=== PATIENT | female | born 1985 | race Caucasian/White ===

== ENCOUNTER 2017-12-08 03:01 | Inpatient (IN) | payer OTHER, MEDICAID ==
[2017-12-08] MEDS: LORazepam 2 MG/ML VIAL (J2060) IV ×2 (03:25→05:00)
[2017-12-08] MEDS: NS 1,000 ML IV (03:30)
[2017-12-08] MEDS: POTASSIUM CHLORIDE 10 MEQ SR TABLET PO ×2 (04:15→11:52)
[2017-12-08] MEDS: OXAZEPAM 15 MG CAP PO ×3 (05:00→23:01)
[2017-12-08] MEDS: KCL 10MEQ IN STERILE WATER 100ML IV (05:00)
[2017-12-08] MEDS ORDERED: KCL 10MEQ IN STERILE WATER 100ML As Ordered (05:01)
[2017-12-08] MEDS ORDERED: POTASSIUM CHLORIDE 10 MEQ SR TABLET As Ordered (05:02)
[2017-12-08 05:09] LABS: BASO % 0.2 % (0.0-1.0); EOS % 0.2 % (0.0-3.0); HEMATOCRIT 39.9 % (36.0-47.0); HEMOGLOBIN 14.3 g/dl (12.0-16.0); IMMATURE GRANULOCYTE # 0.1 10^3/uL (0-0); IMMATURE GRANULOCYTE % 0.5 % (0-0); LYMPH % 10.3 % (24.0-44.0); MEAN CORPUSCULAR HGB CONC 35.8 g/dl (32.0-36.5); MEAN CORPUSCULAR VOLUME 94.8 fl (80.0-96.0); MONO # 0.4 10^3/uL (0.0-0.8); MONO % 4.5 % (0.0-5.0); NEUTROPHILS % 84.3 % (36.0-66.0); PLATELET COUNT, AUTOMATED 145 10^3/uL (150-450); RED BLOOD COUNT 4.21 10^6/uL (4.00-5.40); RED CELL DISTRIBUTION WIDTH 15.5 % (11.5-14.5); WHITE BLOOD COUNT 9.5 10^3/uL (4.0-10.0)
[2017-12-08 05:10] LABS: ANION GAP 12 MEQ/L (8-16); BLOOD UREA NITROGEN 13 MG/DL (7-18); CALCIUM LEVEL 8.7 MG/DL (8.5-10.1); CARBON DIOXIDE LEVEL 31 MEQ/L (21-32); CHLORIDE LEVEL 85 MEQ/L (98-107); CK-MB VALUE MASS 2.1 NG/ML (0.0-3.6); CPK CREATINE PHOSPHOKINASE 550 U/L (26-192); CREATININE FOR GFR 1.15 MG/DL (0.55-1.30); GLOMERULAR FILTRATION RATE 57.9 (>60); GLUCOSE, FASTING 141 MG/DL (70-100); MB/CK RELATIVE INDEX 0.38 (< OR =4); POTASSIUM SERUM 2.8 MEQ/L (3.5-5.1); SODIUM LEVEL 128 MEQ/L (136-145); TROPONIN I < 0.02 NG/ML (< 0.10)
[2017-12-08 05:16] LABS: CONTROL LINE HCG INT CTR LINE PRESENT; HCG, SERUM QUALITATIVE NEGATIVE (NEGATIVE)
[2017-12-08 05:16] LABS: ETHYL ALCOHOL (ETHANOL) < 0.003 % (0.000-0.010)
[2017-12-08] MEDS ORDERED: NS 1,000 ML IV (05:32)
[2017-12-08] MEDS ORDERED: ONDANSETRON 4MG/2ML VIAL (J2405) IV (05:45)
[2017-12-08 05:46] LABS: INR 0.96; PROTHROMBIN TIME 12.9 SECONDS (12.4-14.5)
[2017-12-08 05:57] LABS: ALBUMIN 4.3 GM/DL (3.2-5.2); ALBUMIN/GLOBULIN RATIO 0.93 (1.00-1.93); ALKALINE PHOSPHATASE 52 U/L (45-117); ALT/SGPT 33 U/L (12-78); AST/SGOT 70 U/L (7-37); BILIRUBIN,DIRECT 0.6 MG/DL (0.0-0.2); BILIRUBIN,TOTAL 2.1 MG/DL (0.2-1.0); MAGNESIUM LEVEL 1.5 MG/DL (1.8-2.4); PHOSPHORUS LEVEL 2.1 MG/DL (2.5-4.9); TOTAL PROTEIN 8.9 GM/DL (6.4-8.2)
[2017-12-08] MEDS ORDERED: TETRAHYDROZOLINE OPHTH 0.05% 15 ML BTL OU (06:00)
[2017-12-08] MEDS ORDERED: POLYVINYL ALCOHOL OPHTH SOLN 15 ML(LIQUITEARS) OU (06:30)
[2017-12-08] MEDS: MULTIVITAMIN -ADULT INJECTION 10 ML, THIAMINE INJection 100 MG, FOLIC ACID 1 MG in NS 1... IV (06:45)
[2017-12-08] MEDS: ENOXAPARIN 40 MG/0.4 ML SYRINGE (J1650) SC (08:59)
[2017-12-08] MEDS: PANTOPRAZOLE 40MG TAB (PROTONIX) PO (08:59)
[2017-12-08 10:57] LABS: ALBUMIN 3.2 GM/DL (3.2-5.2); ALBUMIN/GLOBULIN RATIO 0.76 (1.00-1.93); ALKALINE PHOSPHATASE 42 U/L (45-117); ALT/SGPT 27 U/L (12-78); ANION GAP 9 MEQ/L (8-16); AST/SGOT 53 U/L (7-37); BILIRUBIN,TOTAL 1.6 MG/DL (0.2-1.0); BLOOD UREA NITROGEN 11 MG/DL (7-18); CALCIUM LEVEL 7.9 MG/DL (8.5-10.1); CARBON DIOXIDE LEVEL 32 MEQ/L (21-32); CHLORIDE LEVEL 94 MEQ/L (98-107); CREATININE FOR GFR 0.87 MG/DL (0.55-1.30); GLOMERULAR FILTRATION RATE > 60.0 (>60); GLUCOSE, FASTING 105 MG/DL (70-100); MAGNESIUM LEVEL 1.6 MG/DL (1.8-2.4); SODIUM LEVEL 135 MEQ/L (136-145); TOTAL PROTEIN 7.4 GM/DL (6.4-8.2)
[2017-12-08] MEDS: KCL 10MEQ IN 100ML SWI (KRUN) 10 MEQ in APPROPRIATE DILUENT 1 EA IV ×4 (12:00→23:16)
[2017-12-08] MEDS: D5W/0.45% SODIUM CHLORIDE 1,000 ML IV (12:00)
[2017-12-08] MEDS: MAG SULF 1GM/100ML (MAG RUN) 1 GM in APPROPRIATE DILUENT 1 EA IV ×2 (12:23→13:00)
[2017-12-08 17:21] LABS: ANION GAP 6 MEQ/L (8-16); BLOOD UREA NITROGEN 10 MG/DL (7-18); CALCIUM LEVEL 7.8 MG/DL (8.5-10.1); CARBON DIOXIDE LEVEL 30 MEQ/L (21-32); CHLORIDE LEVEL 98 MEQ/L (98-107); CREATININE FOR GFR 0.79 MG/DL (0.55-1.30); GLOMERULAR FILTRATION RATE > 60.0 (>60); GLUCOSE, FASTING 118 MG/DL (70-100); MAGNESIUM LEVEL 2.5 MG/DL (1.8-2.4); POTASSIUM SERUM 3.5 MEQ/L (3.5-5.1); SODIUM LEVEL 134 MEQ/L (136-145)
[2017-12-09] MEDS ORDERED: ACETAMINOPHEN TAB 650MG DOSE (2X325MG) PO (01:15)
[2017-12-09] MEDS: ALBUTEROL SULFATE 2.5 MG/0.5 ML INH NEB SOLN NEB (01:31)
[2017-12-09] MEDS: guaiFENesin ER 600 MG TAB PO ×3 (01:31→21:53)
[2017-12-09] MEDS: LORazepam 2 MG/ML VIAL (J2060) IV (02:56)
[2017-12-09] MEDS: OXAZEPAM 10 MG CAP PO (06:10)
[2017-12-09 07:04] LABS: BASO % 0.4 % (0.0-1.0); EOS # 0.1 10^3/uL (0.0-0.50); EOS % 1.1 % (0.0-3.0); IMMATURE GRANULOCYTE % 0.6 % (0-0); LYMPH # 0.6 10^3/uL (1.5-4.5); LYMPH % 10.6 % (24.0-44.0); MEAN CORPUSCULAR HEMOGLOBIN 33.9 pg (27.0-33.0); MEAN CORPUSCULAR HGB CONC 33.7 g/dl (32.0-36.5); MEAN CORPUSCULAR VOLUME 100.6 fl (80.0-96.0); MONO # 0.3 10^3/uL (0.0-0.8); MONO % 5.2 % (0.0-5.0); NEUTROPHILS # 4.4 10^3/uL (1.8-7.7); NEUTROPHILS % 82.1 % (36.0-66.0); PLATELET COUNT, AUTOMATED 102 10^3/uL (150-450); RED BLOOD COUNT 3.48 10^6/uL (4.00-5.40); RED CELL DISTRIBUTION WIDTH 15.3 % (11.5-14.5); WHITE BLOOD COUNT 5.4 10^3/uL (4.0-10.0)
[2017-12-09 07:12] LABS: HEMOGLOBIN 11.8 g/dl (12.0-16.0)
[2017-12-09 07:24] LABS: ANION GAP 9 MEQ/L (8-16); BLOOD UREA NITROGEN 7 MG/DL (7-18); CALCIUM LEVEL 8.1 MG/DL (8.5-10.1); CARBON DIOXIDE LEVEL 27 MEQ/L (21-32); CHLORIDE LEVEL 100 MEQ/L (98-107); CREATININE FOR GFR 0.71 MG/DL (0.55-1.30); GLOMERULAR FILTRATION RATE > 60.0 (>60); GLUCOSE, FASTING 108 MG/DL (70-100); MAGNESIUM LEVEL 1.9 MG/DL (1.8-2.4); POTASSIUM SERUM 3.4 MEQ/L (3.5-5.1); SODIUM LEVEL 136 MEQ/L (136-145)
[2017-12-09] MEDS ORDERED: guaiFENesin ER 600 MG TAB PO (09:00)
[2017-12-09] MEDS: ENOXAPARIN 40 MG/0.4 ML SYRINGE (J1650) SC (09:00)
[2017-12-09] MEDS: THIAMINE 100 MG TAB PO (09:44)
[2017-12-09] MEDS: MULTIVITAMINS/MINERALS THERAP 1 TAB PO (09:44)
[2017-12-09] MEDS: PANTOPRAZOLE 40MG TAB (PROTONIX) PO (09:44)
[2017-12-09] MEDS: FOLIC ACID 1 MG TAB PO (09:44)
[2017-12-09] MEDS: OXAZEPAM 15 MG CAP PO ×2 (09:45→21:53)
[2017-12-09] MEDS: POTASSIUM CHLORIDE 10 MEQ SR TABLET PO (09:45)
[2017-12-09] MEDS ORDERED: DEXTROMETHORPHAN 5 ML SYRUP (ROBITUSSIN PEDIATRIC COUGH) PO (14:30)
[2017-12-09] MEDS: BENZONATATE 100 MG CAP PO ×2 (14:58→21:53)
[2017-12-09] MEDS: DEXTROMETHORPHAN 60MG/10ML SUSP 90ML BTL(DELSYM) PO (18:07)
[2017-12-10 06:08] LABS: BASO % 0.5 % (0.0-1.0); EOS # 0.2 10^3/uL (0.0-0.50); HEMATOCRIT 36.9 % (36.0-47.0); HEMOGLOBIN 12.5 g/dl (12.0-16.0); IMMATURE GRANULOCYTE % 0.2 % (0-3.0); LYMPH # 1.1 10^3/uL (1.5-4.5); LYMPH % 25.8 % (24.0-44.0); MEAN CORPUSCULAR HEMOGLOBIN 34.2 pg (27.0-33.0); MEAN CORPUSCULAR HGB CONC 33.9 g/dl (32.0-36.5); MEAN CORPUSCULAR VOLUME 100.8 fl (80.0-96.0); MONO # 0.5 10^3/uL (0.0-0.8); MONO % 12.1 % (0.0-5.0); NEUTROPHILS # 2.4 10^3/uL (1.8-7.7); NEUTROPHILS % 57.4 % (36.0-66.0); PLATELET COUNT, AUTOMATED 117 10^3/uL (150-450); RED BLOOD COUNT 3.66 10^6/uL (4.00-5.40); RED CELL DISTRIBUTION WIDTH 15.4 % (11.5-14.5); WHITE BLOOD COUNT 4.2 10^3/uL (4.0-10.0)
[2017-12-10 06:27] LABS: ANION GAP 11 MEQ/L (8-16); BLOOD UREA NITROGEN 5 MG/DL (7-18); CALCIUM LEVEL 8.1 MG/DL (8.5-10.1); CARBON DIOXIDE LEVEL 24 MEQ/L (21-32); CHLORIDE LEVEL 106 MEQ/L (98-107); CREATININE FOR GFR 0.54 MG/DL (0.55-1.30); GLOMERULAR FILTRATION RATE > 60.0 (>60); GLUCOSE, FASTING 108 MG/DL (70-100); MAGNESIUM LEVEL 1.9 MG/DL (1.8-2.4); POTASSIUM SERUM 3.1 MEQ/L (3.5-5.1); SODIUM LEVEL 141 MEQ/L (136-145)
[2017-12-10] MEDS: POTASSIUM CHLORIDE 10 MEQ SR TABLET PO (08:50)
[2017-12-10] MEDS: PANTOPRAZOLE 40MG TAB (PROTONIX) PO (08:51)
[2017-12-10] MEDS: THIAMINE 100 MG TAB PO (08:51)
[2017-12-10] MEDS: ENOXAPARIN 40 MG/0.4 ML SYRINGE (J1650) SC (08:51)
[2017-12-10] MEDS: FOLIC ACID 1 MG TAB PO (08:51)
[2017-12-10] MEDS: BENZONATATE 100 MG CAP PO (08:51)
[2017-12-10] MEDS: guaiFENesin ER 600 MG TAB PO (08:51)
[2017-12-10] MEDS: MULTIVITAMINS/MINERALS THERAP 1 TAB PO (08:51)
[2017-12-10] MEDS: OXAZEPAM 15 MG CAP PO (08:51)
== END 2017-12-10 11:37 | disposition home or self-care (01) | DRG 53 ==
LOC: M ED 03:01 → M ED INP 05:32 → M MS4PR 23:32
DX: G40.89 Other seizures (principal); B97.4 Respiratory syncytial virus as the cause of diseases classified elsewhere; E83.42 Hypomagnesemia; F10.239 Alcohol dependence with withdrawal, unspecified; F12.90 Cannabis use, unspecified, uncomplicated; E87.6 Hypokalemia; R19.7 Diarrhea, unspecified; Z79.899 Other long term (current) drug therapy; Z91.030 Bee allergy status

== ENCOUNTER → 2017-12-17 | Outpatient (REF) | payer OTHER ==
[2017-12-17 12:54] LABS: FOLATE 5.8 NG/ML (>5.4); VITAMIN B12 LEVEL 804 PG/ML (247-911)
[2017-12-17 13:39] LABS: ALBUMIN 3.5 GM/DL (3.2-5.2); ALKALINE PHOSPHATASE 55 U/L (45-117); ALT/SGPT 42 U/L (12-78); ANION GAP 11 MEQ/L (8-16); AST/SGOT 33 U/L (7-37); BILIRUBIN,TOTAL 0.4 MG/DL (0.2-1.0); BLOOD UREA NITROGEN 5 MG/DL (7-18); CALCIUM LEVEL 9.3 MG/DL (8.5-10.1); CARBON DIOXIDE LEVEL 27 MEQ/L (21-32); CHLORIDE LEVEL 102 MEQ/L (98-107); CREATININE FOR GFR 0.57 MG/DL (0.55-1.30); GLOMERULAR FILTRATION RATE > 60.0 (>60); GLUCOSE, FASTING 96 MG/DL (70-100); MAGNESIUM LEVEL 1.8 MG/DL (1.8-2.4); POTASSIUM SERUM 4.1 MEQ/L (3.5-5.1); SODIUM LEVEL 140 MEQ/L (136-145); TOTAL PROTEIN 7.9 GM/DL (6.4-8.2)
== END ==
LOC: M SFHCPLAZ 10:23
DX: E87.6 Hypokalemia (principal); E87.1 Hypo-osmolality and hyponatremia; R74.0 Nonspecific elevation of levels of transaminase and lactic acid dehydrogenase [LDH]; D75.89 Other specified diseases of blood and blood-forming organs; E83.42 Hypomagnesemia
CPT/HCPCS: 82746

== ENCOUNTER 2019-02-03 22:46 | Emergency (ER) | payer OTHER ==
[~2019-02-03] VITALS: Ht 175.3 cm; Wt 206.0 kg
[~2019-02-03 22:46] MED LIST: /THIA10TA OR; BENZ-18 PO; COCO1000 PO; FOLI1TAB OR; IBUP600T42 PO; K-TA10TA2 PO; MAGN400T PO; MAPA500T2 PO; MELA1CAP2 PO; MUCI600T37 PO; MULT1TAB10 PO; MULTIVIT PO; OXAZ15CA2 OR; PREN29TA4 PO; VISI0.054 OU; VITMTA PO
[2019-02-03] MEDS ORDERED: ESCI10TA2 (22:56)
[2019-02-03 23:43] LABS: BASO % 0.4 % (0.0-1.0); EOS # 0.2 10^3/uL (0.0-0.50); EOS % 2.2 % (0.0-3.0); HEMATOCRIT 35.4 % (36.0-47.0); HEMOGLOBIN 12.2 g/dl (12.0-15.5); LYMPH # 3.4 10^3/uL (1.5-4.5); LYMPH % 31.7 % (24.0-44.0); MEAN CORPUSCULAR HEMOGLOBIN 31.6 pg (27.0-33.0); MEAN CORPUSCULAR HGB CONC 34.5 g/dl (32.0-36.5); MEAN CORPUSCULAR VOLUME 91.7 fl (80.0-96.0); MONO # 0.7 10^3/uL (0.0-0.8); MONO % 6.5 % (0.0-5.0); NEUTROPHILS # 6.3 10^3/uL (1.8-7.7); PLATELET COUNT, AUTOMATED 275 10^3/uL (150-450); RED BLOOD COUNT 3.86 10^6/uL (4.00-5.40); WHITE BLOOD COUNT 10.7 10^3/uL (4.0-10.0)
[2019-02-03 23:45] LABS: BILIRUBIN, URINE MANUAL OBSCURED (NEGATIVE); GLUCOSE, URINE (UA) MANUAL OBSCURED mg/dL (NEGATIVE); KETONE, URINE MANUAL OBSCURED mg/dL (NEGATIVE); UROBILINOGEN, URINE MANUAL OBSCURED mg/dl (NORMAL)
[2019-02-03 23:49] LABS: MUCUS, URINE SMALL AMOUNT (NEGATIVE); RBC, URINE TNTC /hpf (0-3); SQUAMOUS EPITHELIAL CELL URINE SMALL AMOUNT /hpf (SMALL AMT)
[2019-02-03 23:51] LABS: BACTERIA, URINE SMALL AMOUNT; HYALINE CAST, URINE NONE SEEN /lpf (0-1)
--- NOTE | 2019-02-04 00:10 | REPVR ---
EXAM: US First Trimester, Transabdominal EXAM DATE/TIME: 02/03/2019 11:22 PM CLINICAL HISTORY: 33 years old, female; Signs and symptoms; Lmp or gestational age (in weeks): Unknown; Other: Vagial bleeding; ; Additional info: Bleeding, 8 wks TECHNIQUE: Imaging protocol: Real-time transabdominal obstetrical ultrasound of the maternal pelvis and a first trimester , less than 14 weeks 0 days, with image documentation. COMPARISON: No relevant prior studies available. FINDINGS: GESTATION: Gestation: No gestational sac demonstrated. BIOMETRY: Estimated gestational age: 8 weeks by history MATERNAL: Uterus: Uterus measures 11.3 x 5.4 x 6.5 cm. Endometrial echocomplex measures 1.9 centimeters. Cervix: Unremarkable. Right adnexa: Unremarkable. Left adnexa: Left ovarian cyst measures 1.2 x 2.3 x 1.5 cm. Intraperitoneal: No intraperitoneal free fluid. IMPRESSION: Empty uterus in a patient who is reportedly 8 weeks based on dates. Finding may indicate very early IUP prior to visualization of a gestational sac or fetus, assuming dates are inaccurate. Correlation with serial beta-hCG levels and follow ultrasound recommended in order to exclude ectopic verses very early or early failure. Electronically signed by: Antonio Crespo On 02/04/2019 00:09:53 AM
[2019-02-04 01:40] VITALS: BP 127/68
== END 2019-02-04 01:44 | disposition home or self-care (01) ==
LOC: M ED 22:46
DX: O20.9 Hemorrhage in early pregnancy, unspecified (principal); Z3A.08 8 weeks gestation of pregnancy; O99.89 Other specified diseases and conditions complicating pregnancy, childbirth and the puerperium; R56.9 Unspecified convulsions; Z91.030 Bee allergy status

== ENCOUNTER → 2019-02-05 | Outpatient (CLI) | payer OTHER ==
[~2019-02-05] MED LIST changes: +ESCI10TA2
== END ==
LOC: M LAB 15:17
PROVIDERS: ATTEND Student in an Organized Health Care Education/Training Program
DX: O99.89 Other specified diseases and conditions complicating pregnancy, childbirth and the puerperium (principal); N93.9 Abnormal uterine and vaginal bleeding, unspecified; Z3A.00 Weeks of gestation of pregnancy not specified

== ENCOUNTER → 2019-03-01 | Outpatient (CLI) | payer OTHER ==
[2019-03-03 14:51] LABS: HPV HYBRID CAPTURE II Negative (Negative)
== END ==
LOC: M SMT 10:27
PROVIDERS: ATTEND Advanced Practice Midwife
DX: N92.6 Irregular menstruation, unspecified (principal); Z12.4 Encounter for screening for malignant neoplasm of cervix

== ENCOUNTER 2020-02-22 16:51 | Inpatient (IN) | payer MEDICAID, OTHER ==
[~2020-02-22] VITALS: Ht 172.7 cm; Wt 97.4 kg
[~2020-02-22 16:51] MED LIST changes: -MAGN400T PO; +MAGN400T3 PO
[2020-02-22] MEDS ORDERED: TRAZ-252 PO (16:58)
[2020-02-22] MEDS ORDERED: NALT50TA4 PO (16:58)
[2020-02-22 17:33] LABS: BASO % 0.4 % (0.0-1.0); EOS # 0.1 10^3/uL (0.0-0.5); EOS % 1.2 % (0.0-3.0); HEMATOCRIT 40.7 % (36.0-47.0); HEMOGLOBIN 13.8 g/dl (12.0-15.5); LYMPH # 1.2 10^3/uL (1.5-5.0); LYMPH % 23.6 % (24.0-44.0); MEAN CORPUSCULAR HEMOGLOBIN 32.9 pg (27.0-33.0); MEAN CORPUSCULAR HGB CONC 33.9 g/dl (32.0-36.5); MEAN CORPUSCULAR VOLUME 97.1 fl (80.0-96.0); MONO # 0.2 10^3/uL (0.0-0.8); MONO % 4.3 % (0.0-5.0); NEUTROPHILS # 3.4 10^3/uL (1.5-8.5); NEUTROPHILS % 70.3 % (36.0-66.0); PLATELET COUNT, AUTOMATED 120 10^3/uL (150-450); RED BLOOD COUNT 4.19 10^6/uL (4.00-5.40); WHITE BLOOD COUNT 4.9 10^3/uL (4.0-10.0)
[2020-02-22] MEDS ORDERED: FOLIC ACID 1 MG TAB PO ONE (17:45)
[2020-02-22] MEDS ORDERED: OXAZEPAM 15 MG CAP PO ONE (17:45)
[2020-02-22] MEDS ORDERED: THIAMINE 100 MG TAB PO ONE (17:45)
[2020-02-22] MEDS ORDERED: NS 1,000 ML IV ONE (17:45)
[2020-02-22 18:03] LABS: HCG, SERUM QUALITATIVE NEGATIVE (NEGATIVE)
[2020-02-22 18:12] LABS: ALT/SGPT 24 U/L (12-78); BILIRUBIN,DIRECT 0.4 MG/DL (0.0-0.2); BILIRUBIN,TOTAL 1.1 MG/DL (0.2-1.0); BLOOD UREA NITROGEN 7 MG/DL (7-18); CALCIUM LEVEL 9.9 MG/DL (8.5-10.1); CARBON DIOXIDE LEVEL 25 MEQ/L (21-32); CHLORIDE LEVEL 95 MEQ/L (98-107); CREATININE FOR GFR 1.04 MG/DL (0.55-1.30); ETHYL ALCOHOL (ETHANOL) < 0.003 % (0.000-0.010); FREE T4 0.87 NG/DL (0.76-1.46); GLOMERULAR FILTRATION RATE > 60.0 (>60); GLUCOSE, FASTING 168 MG/DL (70-100); MAGNESIUM LEVEL 1.2 MG/DL (1.8-2.4); PHOSPHORUS LEVEL 2.2 MG/DL (2.5-4.9); POTASSIUM SERUM 2.9 MEQ/L (3.5-5.1); SODIUM LEVEL 133 MEQ/L (136-145); TOTAL PROTEIN 8.6 GM/DL (6.4-8.2)
[2020-02-22] MEDS ORDERED: POTASSIUM CHLORIDE 10 MEQ SR TABLET PO ONE (18:15)
[2020-02-22] MEDS ORDERED: KCL 10MEQ/100ML SWI (KRUN) 10 MEQ in IV 1 EA IV ONE (18:15)
--- NOTE | 2020-02-22 18:19 | REP ---
Clinical: Cough. Seizures . Comparison: None . Findings: The mediastinum and cardiac silhouette are stable and within normal limits for portable technique. The lung bee are clear without acute consolidation, effusion, or pneumothorax. Skeletal structures are intact. Impression: No acute cardiopulmonary process appreciated. Electronically Signed by Thiago Kulkarni MD 02/22/2020 06:10 P
[2020-02-22] MEDS ORDERED: NEUTRA-PHOS 1.5 GM PACKET PO ONE (18:45)
[2020-02-22] MEDS ORDERED: MAGNESIUM OXIDE 400 MG TAB (MAG-OX) PO ONE (18:45)
[2020-02-22 19:59] LABS: AMPHETAMINES LEVEL URINE NEGATIVE (NEGATIVE); BARBITURATES URINE NEGATIVE (NEGATIVE); BENZODIAZEPINES URINE NEGATIVE (NEGATIVE); CANNABINOIDS URINE POSITIVE (NEGATIVE); COCAINE METABOLITE URINE NEGATIVE (NEGATIVE); METHADONE URINE NEGATIVE (NEGATIVE); OPIATES URINE NEGATIVE (NEGATIVE); PHENCYCLIDINE URINE NEGATIVE (NEGATIVE)
[2020-02-22] MEDS ORDERED: LORazepam 2 MG/ML VIAL (J2060) IV STA (20:14)
[2020-02-22] MEDS ORDERED: LORazepam 2 MG/ML VIAL (J2060) As Ordered ONE (20:26)
[2020-02-22] MEDS ORDERED: ESCI20TA PO (20:52)
[2020-02-22] MEDS ORDERED: ACETAMINOPHEN TAB 650MG DOSE (2X325MG) PO PRN (21:00)
[2020-02-22] MEDS: KCL 40MEQ in NS 1000ML 1,000 ML IV SCH (21:41)
--- NOTE | 2020-02-22 21:43 | HPEPDOC ---
General Date of Admission Feb 22, 2020 at 20:57 Date of Service: Feb 22, 2020 Chief Complaint The patient is a 34-year-old female Who presented to the hospital after she was found to have a seizure-like episode at home History of Present Illness Patient is a 34-year-old female with a past medical history of alcohol dependence. Marijuana use, depression and insomnia who presented to the hospital after she had experienced a seizure-like episode this afternoon. Patient reported that she remembers walking around her living room and toward her kitchen and then went for a nap, but does not remember anything after that point. Patients boyfriend has reported that she began to experience tonic- clonic seizure like activity. Patient remembers waking up post seizure, feeling extremely weak and tired. She denied any incontinence of her bowel or bladder. She does report some li biting, but denies any frothing of her mouth. Patient has reported that she has experienced a seizure-like episode like this almost 2 years ago and was hospitalized for similar presentation. At that time, patient was advised that her seizures were associated to alcohol withdrawal. Patient has not been on any antiepileptic medications. Patient does report drinking an excessive amount of alcohol over the last 1 week. She does report consuming at least 5 glasses of vodka per day. Of note, patient did not consume any alcohol today. Patient denies any chest pain, shortness of breath or any changes of her baseline cough. She has not experienced any fevers or chills, abdominal pain, nausea, vomiting, constipation, diarrhea, or urinary discomfort. Home Medications Scheduled Escitalopram Oxalate (Escitalopram Oxalate) 20 Mg Tablet, 20 MG PO DAILY, (Reported) Naltrexone HCl (Naltrexone HCl) 50 Mg Tablet, 50 MG PO QHS, (Reported) Scheduled PRN Trazodone HCl (Trazodone HCl) 50 Mg Tablet, 50 MG PO QHS PRN for SLEEP, (Reported) Allergies Coded Allergies: bee venom protein (honey bee) (Verified Allergy, Unknown, 02/03/19) Past Medical History Medical History Alcohol dependence. Marijuana use, depression and insomnia Surgical History Tooth extraction Family History - Mother with a history of diabetes and heart problems - Father -With no reported medical problems No history of malignancies Social History - Denies the use of tobacco; vision. 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 Review of Systems Other systems 10 point review of systems complete, all negative otherwise stated in HPI Vital Signs - Vitals: BP 128/90, HR 88, RR 18, Sat 95%RA, Temp 97.1F - General: Lying in bed, Speaking in full sentences, AAOx3 - HEENT: + Lip bite, PERRLA, EOMI - CVS: RRR, +S1S2 - Lungs: Fair air entry bilaterally, No appreciable wheezing / rales / rhonchi - Abdomen: Soft, Non-distended, Non-tender - Extremities: No lower extremity edema, No calf tenderness - Neuro: No focal motor or sensory deficit - Skin: No visible rashes Laboratory Data Labs 24H Laboratory Tests 2 02/22/20 17:09: Immature Granulocyte % (Auto) 0.2, Neutrophils (%) (Auto) 70.3H, Lymphocytes (%) (Auto) 23.6L, Monocytes (%) (Auto) 4.3, Eosinophils (%) (Auto) 1.2, Basophils (%) (Auto) 0.4, Neutrophils # (Auto) 3.4, Lymphocytes # (Auto) 1.2L, Monocytes # (Auto) 0.2, Eosinophils # (Auto) 0.1, Basophils # (Auto) 0.0, Nucleated Red Blood Cells % (auto) 0.0, Anion Gap 13, Glomerular Filtration Rate > 60.0, Calcium Level 9.9, Phosphorus Level 2.2L, Magnesium Level 1.2L, Total Bilirubin 1.1H, Direct Bilirubin 0.4H, Aspartate Amino Transf (AST/SGOT) 32, Alanine Aminotransferase (ALT/SGPT) 24, Alkaline Phosphatase 46, Total Protein 8.6H, A lbumin 4.0, Albumin/Globulin Ratio 0.87L, Thyroid Stimulating Hormone (TSH) 3.070, Free Thyroxine 0.87, Human Chorionic Gonadotropin, Qual NEGATIVE, Ethyl Alcohol Level < 0.003 02/22/20 17:22: Bedside Glucose (Misc Panel) 184H 02/22/20 19:25: Urine Color REDH, Urine Appearance HAZY, Urine pH 7.0, Urine Specific [place] 1.006, Urine Protein 2+H, Urine Glucose (UA) NEGATIVE, Urine Ketones TRACEH, Urine Blood 3+H, Urine Nitrite NEGATIVE, Urine Bilirubin NEGATIVE, Urine Urobilinogen 0.2, Urine Leukocyte Esterase TRACEH, Urine WBC (Auto) TNTCH, Urine RBC (Auto) TNTCH, Urine Hyaline Casts (Auto) 0, Urine Bacteria (Auto) NEGATIVE, Urine Squamous Epithelial Cells 0, Urine Sperm (Auto) , Urine Opiates Screen NEGATIVE, Urine Methadone Screen NEGATIVE, Urine Barbiturates Screen NEGATIVE, Urine Phencyclidine Screen NEGATIVE, Urine Amphetamines Screen NEGATIVE, Urine Benzodiazepines Screen NEGATIVE, Urine Cocaine Metabolite Screen NEGATIVE, Urine Cannabinoids Screen POSITIVEH CBC/BMP Laboratory Tests 02/22/20 17:09 Microbiology Microbiology 02/22/20 Urine Culture, Received Pending Plan / VTE VTE Prophylaxis Ordered?: Yes Plan Plan Tonic-clonic seizures - likely 2/2 Alcohol withdrawal seizure - Patient presented to the hospital after she observed to have a tonic-clonic seizure while at home - Patient has had a recent extensive use of alcohol and suddenly stopped consumption today - Patient has a history of alcohol withdrawal seizures - Physical without any focal neurologic deficits - Will start patient on CIWA protocol and Serax Alcohol dependence - Will start multivitamins, thiamine and folate Hyponatremia - Mild - Will continue with gentle IV fluid hydration with electrolyte supplementation Hypokalemia - Will supplement potassium - Will continue with telemetry monitoring Hypomagnesemia - Will supplement magnesium Thrombocytopenia - likely 12/04 alcohol - Review of medical record does reveal evidence of thrombocytopenia in 12/2017 Gastrointestinal prophylaxis - Will start protonix DVT prophylaxis - Will start TEDs/Sequentials EZEQUIEL HOLLAND MD Feb 22, 2020 21:43
[2020-02-22] MEDS: MAG SULF 1GM/100ML (MAG RUN) 1 GM in IV 1 EA IV SCH ×2 (21:46→23:15)
[2020-02-22 23:04] VITALS: BP 118/60
[2020-02-22] MEDS: PANTOPRAZOLE 40MG VIAL (C9113 PER 1) IV SCH (23:14)
[2020-02-22] MEDS: OXAZEPAM 10 MG CAP PO SCH (23:15)
[2020-02-23] VITALS (9 sets, daily range): BP systolic 124–142; BP diastolic 65–87
[2020-02-23] MEDS: LORazepam 2 MG TAB PO PRN ×3 (00:28→23:43)
[2020-02-23 01:07] LABS: BLOOD UREA NITROGEN 6 MG/DL (7-18); CALCIUM LEVEL 8.9 MG/DL (8.5-10.1); CARBON DIOXIDE LEVEL 28 MEQ/L (21-32); CHLORIDE LEVEL 102 MEQ/L (98-107); CREATININE FOR GFR 0.63 MG/DL (0.55-1.30); GLOMERULAR FILTRATION RATE > 60.0 (>60); GLUCOSE, FASTING 116 MG/DL (70-100); POTASSIUM SERUM 3.4 MEQ/L (3.5-5.1); SODIUM LEVEL 139 MEQ/L (136-145)
--- NOTE | 2020-02-23 01:14 | ECGEPIP ---
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
[2020-02-23 01:36] LABS: MAGNESIUM LEVEL 2.4 MG/DL (1.8-2.4)
[2020-02-23] MEDS: OXAZEPAM 10 MG CAP PO SCH ×4 (05:56→23:29)
[2020-02-23] MEDS ORDERED: HEPARIN SOD (PORCINE) 5000UNITS/ML VIAL (J1644 PER 1000UNITS) SC SCH (06:00)
[2020-02-23 06:42] LABS: BASO % 0.2 % (0.0-1.0); HEMATOCRIT 36.5 % (36.0-47.0); HEMOGLOBIN 12.1 g/dl (12.0-15.5); LYMPH # 1.3 10^3/uL (1.5-5.0); LYMPH % 30.6 % (24.0-44.0); MEAN CORPUSCULAR HEMOGLOBIN 32.9 pg (27.0-33.0); MEAN CORPUSCULAR HGB CONC 33.2 g/dl (32.0-36.5); MEAN CORPUSCULAR VOLUME 99.2 fl (80.0-96.0); MONO # 0.2 10^3/uL (0.0-0.8); MONO % 4.5 % (0.0-5.0); NEUTROPHILS # 2.7 10^3/uL (1.5-8.5); NEUTROPHILS % 63.5 % (36.0-66.0); PLATELET COUNT, AUTOMATED 106 10^3/uL (150-450); RED BLOOD COUNT 3.68 10^6/uL (4.00-5.40); WHITE BLOOD COUNT 4.2 10^3/uL (4.0-10.0)
[2020-02-23 07:12] LABS: BLOOD UREA NITROGEN 4 MG/DL (7-18); CALCIUM LEVEL 8.2 MG/DL (8.5-10.1); CARBON DIOXIDE LEVEL 25 MEQ/L (21-32); CHLORIDE LEVEL 104 MEQ/L (98-107); CREATININE FOR GFR 0.76 MG/DL (0.55-1.30); GLOMERULAR FILTRATION RATE > 60.0 (>60); GLUCOSE, FASTING 106 MG/DL (70-100); MAGNESIUM LEVEL 1.8 MG/DL (1.8-2.4); POTASSIUM SERUM 3.2 MEQ/L (3.5-5.1); SODIUM LEVEL 137 MEQ/L (136-145)
[2020-02-23] MEDS: THIAMINE 100 MG TAB PO SCH (08:37)
[2020-02-23] MEDS: FOLIC ACID 1 MG TAB PO SCH (08:37)
[2020-02-23] MEDS: KCL 40MEQ in NS 1000ML 1,000 ML IV SCH ×3 (08:38→20:02)
--- NOTE | 2020-02-23 17:02 | IPNPDOC ---
Text Note Date of Service The patient was seen on 02/23/20. NOTE Subjective: -No complaints this AM Objective: General: NAD, Speaking in full sentences, AAOx3 HEENT: + Lip bite as previously noted, PERRLA, EOMI CVS: RRR, +S1S2 Lungs:CTAB Abdomen: Soft, Non-distended, Non-tender Extremities: No lower extremity edema, WWP Neuro: No focal motor or sensory deficit Skin: No visible rashes Laboratory Data K 3.2 Cr 0.76 WBC 4.2 hgb 12.1 Assessment: 34-year-old W with alcohol use disorder, marijuana use, depression and insomnia who presented to the hospital after she a tonic-clonic seizure in the setting of abruptly stopping alcohol consumption. Tonic-clonic seizures - likely 2/2 Alcohol withdrawal seizure after a recent extensive use of alcohol and suddenly stopped consumption, with a history of withdrawal seizures - continue CIWA protocol and Serax Alcohol dependence - Will start multivitamins, thiamine and folate Hyponatremia: resolving - Will continue with gentle IV fluid hydration with electrolyte supplementation Hypokalemia - continue supplementation - continue with telemetry monitoring Hypomagnesemia - s/p repletion. Monitor daily Thrombocytopenia - likely 2/2 alcohol - Review of medical record does reveal evidence of thrombocytopenia in 12/2017 Gastrointestinal prophylaxis - continue protonix DVT prophylaxis - TEDs/Sequentials VS,Fishbone, I+O VS, Fishbone, I+O Laboratory Tests 02/22/20 17:09 02/23/20 00:28 02/23/20 06:29 Vital Signs Date Time Temp Pulse Resp B/P (MAP) Pulse Ox O2 Delivery O2 Flow Rate FiO2 02/23/20 16:00 96.6 98 20 126/67 (86) 99 Room Air I&O- Last 24 Hours up to 6 AM 02/23/20 06:00 Intake Total 3160 ml Balance 3160 ml FLOWER MATIAS MD Feb 23, 2020 17:02
[2020-02-23] MEDS: PANTOPRAZOLE 40MG VIAL (C9113 PER 1) IV SCH (20:02)
[2020-02-23] MEDS ORDERED: POTASSIUM CHLORIDE 10 MEQ SR TABLET PO ONE (22:30)
[2020-02-23] MEDS ORDERED: MAG SULF 1GM/100ML (MAG RUN) 1 GM in IV 1 EA IV ONE (22:30)
[2020-02-24] VITALS: BP 132/80
[2020-02-24 04:00] VITALS: BP 148/88
[2020-02-24] MEDS: KCL 40MEQ in NS 1000ML 1,000 ML IV SCH (05:50)
[2020-02-24] MEDS: OXAZEPAM 10 MG CAP PO SCH (05:50)
[2020-02-24 07:22] LABS: BASO % 0.2 % (0.0-1.0); EOS # 0.1 10^3/uL (0.0-0.5); EOS % 1.9 % (0.0-3.0); HEMATOCRIT 37.2 % (36.0-47.0); HEMOGLOBIN 12.4 g/dl (12.0-15.5); LYMPH # 1.5 10^3/uL (1.5-5.0); LYMPH % 35.4 % (24.0-44.0); MEAN CORPUSCULAR HEMOGLOBIN 33.7 pg (27.0-33.0); MEAN CORPUSCULAR HGB CONC 33.3 g/dl (32.0-36.5); MEAN CORPUSCULAR VOLUME 101.1 fl (80.0-96.0); MONO # 0.2 10^3/uL (0.0-0.8); MONO % 4.7 % (0.0-5.0); NEUTROPHILS # 2.4 10^3/uL (1.5-8.5); NEUTROPHILS % 57.6 % (36.0-66.0); PLATELET COUNT, AUTOMATED 112 10^3/uL (150-450); RED BLOOD COUNT 3.68 10^6/uL (4.00-5.40); WHITE BLOOD COUNT 4.2 10^3/uL (4.0-10.0)
[2020-02-24 07:58] LABS: BLOOD UREA NITROGEN 1 MG/DL (7-18); CALCIUM LEVEL 8.1 MG/DL (8.5-10.1); CARBON DIOXIDE LEVEL 22 MEQ/L (21-32); CHLORIDE LEVEL 109 MEQ/L (98-107); CREATININE FOR GFR 0.62 MG/DL (0.55-1.30); GLOMERULAR FILTRATION RATE > 60.0 (>60); GLUCOSE, FASTING 89 MG/DL (70-100); MAGNESIUM LEVEL 1.9 MG/DL (1.8-2.4); POTASSIUM SERUM 3.7 MEQ/L (3.5-5.1); SODIUM LEVEL 138 MEQ/L (136-145)
[2020-02-24 08:00] VITALS: BP_SYST 138; BP_SYST 148; BP_DIAS 101; BP_DIAS 98
[2020-02-24] MEDS: FOLIC ACID 1 MG TAB PO SCH (08:20)
[2020-02-24] MEDS: THIAMINE 100 MG TAB PO SCH (08:20)
[2020-02-24 08:26] VITALS: BP 138/98
--- NOTE | 2020-02-24 10:39 | EEG ---
DATE OF EE02/23/2020 REFERRING PHYSICIAN: Dr. Dae Fischer DIAGNOSIS: Seizure. EEG NUMBER: [id number] HISTORY: Patient is a 34-year-old woman, who was admitted at [facility] after seizure-like activity. She has history of alcohol dependence. Patient stated that she did not drink excessive alcohol for 1 week. She also has history of marijuana use, depression, insomnia. She is currently taking folic acid, oxazepam, thiamine, Protonix, etc. TECHNICAL DESCRIPTION: This digital EEG was recorded by 21 scalp, ear, and two EKG electrodes and was reviewed in bipolar and referential montages following reformatting in 10-20 international electrode placement system. INTERPRETATION: The patient was noted to be in awake and drowsy states during this EEG. Resting awake background rhythm consisted of 9 Hz alpha activity measuring 15-40 microvolts in amplitude, which was symmetric and reactive to eye opening in readable portions of this EEG. Background rhythm was severely affected by muscle artifact in bilateral frontal temporal and parietal head regions. No sleep was achieved. Hyperventilation and photic stimulation remained unremarkable. EKG revealed normal sinus rhythm. No focal, lateralizing or epileptiform abnormalities were seen in the readable portions of this EEG. No relevant clinical activity was noted. CONCLUSION: This EEG in awake and drowsy states is severely affected by muscle artifact in bilateral frontal, temporal and parietal head regions. Readable portions of this EEG were within normal limits.
[2020-02-24] MEDS ORDERED: FOLI1TAB11 PO (11:53)
[2020-02-24] MEDS ORDERED: THIA100TA PO (11:53)
[2020-02-24 12:00] VITALS: BP 142/101
--- NOTE | 2020-02-24 14:08 | DS.PDOC ---
Discharge Summary General Date of Admission Feb 22, 2020 at 20:57 Date of Discharge 02/24/2020 Attending Physician: FLOWER MATIAS MD Discharge Summary PROCEDURES PERFORMED DURING STAY: None ADMITTING DIAGNOSES: 1. Alcohol withdrawal with seizure DISCHARGE DIAGNOSES: 1. Alcohol withdrawal with seizure activity 2. Alcohol use disorder COMPLICATIONS/CHIEF COMPLAINT: Seizure,Alcohol Withdrawal. HISTORY OF PRESENT ILLNESS: 34-year-old W with a history of alcohol use disorder, marijuana use, depression and insomnia who presented to the hospital after she had experienced a seizure-like episode in the setting of abruptly stopping alcohol consumption after 3 days of binge drinking. She reported walking around her living room and toward her kitchen and then went for a nap, but does not remember anything after that point but her boyfriend who was present reported witnessing a tonic-clonic seizure like activity. Patient reported a similar prior history of seizure-like activity almost 2 years ago and was hospitalized alcohol withdrawal. HOSPITAL COURSE: On presentation she was started on the CIWA protocol with standing serax and PRN ativan with resolution of symptoms. She was otherwise hemodynamically stable, afebrile and had a CXR that was wnl and EEG that did not show any epileptiform activity. She is now being discharged home and was seen by [facility] and offered information for outpatient treatment. DISCHARGE MEDICATIONS: Please see below. ALLERGIES: Please see below. PHYSICAL EXAMINATION ON DISCHARGE: VITAL SIGNS: Please see below. General: NAD, Speaking in full sentences, AAOx3, sitting up on bed, in streets clothes, requesting to be discharged from the hospital HEENT: NCAT, MMM, PERRLA, EOMI, anicteric CVS: RRR, +S1S2 Lungs:CTAB Abdomen: Soft, Non-distended, Non-tender Extremities: No lower extremity edema, WWP Neuro: No focal motor or sensory deficit, gait wnl Skin: No visible rashes LABORATORY DATA: Please see below. IMAGIN/22 CXR: no acute cardiopulmonary pathological process 02/22 EEG: This EEG in awake and drowsy states is severely affected by muscle artifact in bilateral frontal, temporal and parietal head regions. Readable portions of this EEG were within normal limits. PROGNOSIS: Good with abstinence from alcohol and seeking alcohol use disorder treatment ACTIVITY: As tolerated DIET: Regular DISCHARGE PLAN: Home with information on outpatient treatment services DISPOSITION: 01 Home, Self-Care. DISCHARGE INSTRUCTIONS: 1. Please abstain from alcohol 2. Please use the information provided by our inpatient team that connects to alcohol use disorder outpatient treatment service providers ITEMS TO FOLLOWUP ON ON OUTPATIENT: 1. Alcohol use disorder DISCHARGE CONDITION: Stable TIME SPENT ON DISCHARGE: 34 minutes. Vital Signs/I&Os Vital Signs Date Time Temp Pulse Resp B/P (MAP) Pulse Ox O2 Delivery O2 Flow Rate FiO2 02/24/20 12:00 98.0 91 18 142/101 (115) 100 Room Air I&O- Last 24 Hours up to 6 AM 02/24/20 05:59 Intake Total 5066 ml Output Total 200 ml Balance 4866 ml Laboratory Data Labs 24H Laboratory Tests 2 02/24/20 07:03: Immature Granulocyte % (Auto) 0.2, Neutrophils (%) (Auto) 57.6, Lymphocytes (%) (Auto) 35.4, Monocytes (%) (Auto) 4.7, Eosinophils (%) (Auto) 1.9, Basophils (%) (Auto) 0.2, Neutrophils # (Auto) 2.4, Lymphocytes # (Auto) 1.5, Monocytes # (Auto) 0.2, Eosinophils # (Auto) 0.1, Basophils # (Auto) 0.0, Nucleated Red Bloo d Cells % (auto) 0.0, Anion Gap 7L, Glomerular Filtration Rate > 60.0, Calcium Level 8.1L, Magnesium Level 1.9 CBC/BMP Laboratory Tests 02/24/20 07:03 Microbiology Microbiology 02/22/20 Urine Culture - Final, Complete Discharge Medications Scheduled Escitalopram Oxalate (Escitalopram Oxalate) 20 Mg Tablet, 20 MG PO DAILY, (Reported) Folic Acid (Folic Acid) 1 Mg Tablet, 1 MG PO DAILY Naltrexone HCl (Naltrexone HCl) 50 Mg Tablet, 50 MG PO QHS, (Reported) Thiamine Hcl (Vitamin B-1) 100 Mg Tablet, 100 MG PO DAILY Scheduled PRN Trazodone HCl (Trazodone HCl) 50 Mg Tablet, 50 MG PO QHS PRN for SLEEP, (Reported) Allergies Coded Allergies: bee venom protein (honey bee) (Verified Allergy, Unknown, 02/03/19) FLOWER MATIAS MD Feb 24, 2020 14:08
== END 2020-02-24 12:41 | disposition home or self-care (01) | DRG 775 ==
LOC: M ED 16:51 → M ED INP 20:57 → ENRESERV 21:36 → M PCU 23:04
PROVIDERS: ADMIT Internal Medicine; ATTEND Internal Medicine
DX: F10.239 Alcohol dependence with withdrawal, unspecified (principal); G40.409 Other generalized epilepsy and epileptic syndromes, not intractable, without status epilepticus; E87.1 Hypo-osmolality and hyponatremia; E87.6 Hypokalemia; D69.6 Thrombocytopenia, unspecified; E83.42 Hypomagnesemia; F32.9 Major depressive disorder, single episode, unspecified; G47.00 Insomnia, unspecified; Z79.899 Other long term (current) drug therapy; Z91.030 Bee allergy status

== ENCOUNTER 2020-04-05 19:48 | Observation (INO) | payer MEDICAID ==
[~2020-04-05] VITALS: Ht 175.3 cm; Wt 95.4 kg
[~2020-04-05 19:48] MED LIST changes: +ESCI20TA PO; +FOLI1TAB11 PO; +NALT50TA4 PO; +THIA100TA PO; +TRAZ-252 PO
[2020-04-05] MEDS ORDERED: EMLA CREAM 5GM (LIDOCAINE/PRILOCAINE) TOP ONE (20:15)
[2020-04-05] MEDS ORDERED: ACETAMINOPHEN 500 MG TAB PO ONE (20:30)
[2020-04-05] MEDS ORDERED: BOOSTRIX/ADACEL VACCINE (DIPHTH/PERTUSS/ACELL/TETANUS) 0.5ML SYR IM ONE (20:45)
[2020-04-05] MEDS ORDERED: ONDANSETRON 4 MG ORAL DISINTEGRATING TAB PO ONE (21:00)
[2020-04-05] MEDS ORDERED: NS 1,000 ML IV ONE (21:30)
[2020-04-05] MEDS ORDERED: LORazepam 2 MG/ML VIAL IV STA (21:34)
[2020-04-05 21:49] LABS: BASO % 0.1 % (0.0-1.0); EOS % 0.6 % (0.0-3.0); HEMATOCRIT 35.3 % (36.0-47.0); HEMOGLOBIN 12.1 g/dl (12.0-15.5); LYMPH # 0.9 10^3/uL (1.5-5.0); LYMPH % 12.7 % (24.0-44.0); MEAN CORPUSCULAR HEMOGLOBIN 33.2 pg (27.0-33.0); MEAN CORPUSCULAR HGB CONC 34.3 g/dl (32.0-36.5); MEAN CORPUSCULAR VOLUME 96.7 fl (80.0-96.0); MONO # 0.4 10^3/uL (0.0-0.8); MONO % 5.9 % (0.0-5.0); NEUTROPHILS # 5.6 10^3/uL (1.5-8.5); NEUTROPHILS % 80.6 % (36.0-66.0); PLATELET COUNT, AUTOMATED 138 10^3/uL (150-450); RED BLOOD COUNT 3.65 10^6/uL (4.00-5.40); WHITE BLOOD COUNT 6.9 10^3/uL (4.0-10.0)
[2020-04-05 21:58] LABS: INR 1.09; PROTHROMBIN TIME 13.8 SECONDS (11.8-14.0)
[2020-04-05 21:59] LABS: PARTIAL THROMBOPLASTIN TIME 26.2 SECONDS (25.0-38.4)
[2020-04-05 22:18] LABS: ALBUMIN 3.4 GM/DL (3.2-5.2); ALT/SGPT 29 U/L (12-78); BILIRUBIN,TOTAL 1.1 MG/DL (0.2-1.0); BLOOD UREA NITROGEN 11 MG/DL (7-18); CARBON DIOXIDE LEVEL 34 MEQ/L (21-32); CHLORIDE LEVEL 90 MEQ/L (98-107); CREATININE FOR GFR 0.88 MG/DL (0.55-1.30); ETHYL ALCOHOL (ETHANOL) < 0.003 % (0.000-0.010); GLOMERULAR FILTRATION RATE > 60.0 (>60); GLUCOSE, FASTING 128 MG/DL (70-100); POTASSIUM SERUM 2.6 MEQ/L (3.5-5.1); SODIUM LEVEL 135 MEQ/L (136-145); TOTAL PROTEIN 8.1 GM/DL (6.4-8.2)
[2020-04-05 22:42] LABS: MAGNESIUM LEVEL 1.1 MG/DL (1.8-2.4)
[2020-04-05] MEDS ORDERED: MAG SULF 1GM/100ML (MAG RUN) 1 GM in IV 1 EA IV ONE (23:00)
[2020-04-05] MEDS ORDERED: POTASSIUM CHLORIDE 10 MEQ SR TABLET PO ONE (23:00)
[2020-04-05] MEDS ORDERED: TRAZ-252 PO (23:20)
[2020-04-06] VITALS (9 sets, daily range): BP systolic 102–136; BP diastolic 64–91
[2020-04-06] MEDS ORDERED: ACETAMINOPHEN TAB 650MG DOSE (2X325MG) PO PRN (01:15)
[2020-04-06] MEDS ORDERED: MAALOX 30 ML SUSP *UDC PO PRN (01:15)
[2020-04-06] MEDS ORDERED: POTASSIUM CHLORIDE 10 MEQ SR TABLET PO ONE ×2 (01:30→09:00)
--- NOTE | 2020-04-06 01:30 | HPEPDOC ---
General Date of Admission Date of Service: Apr 06, 2020 Chief Complaint The patient is a 34-year-old female admitted with a reason for visit of Head Injury. Source: Patient, RN/MD Exam Limitations: No limitations Timing/Duration: Other Severity: Other (today) Associated Symptoms: Other (is off the couch) History of Present Illness This is a 33 years old female with past medical history of no significant disease, came into ED as she claimed that she was sleeping on the couch and she fell off the couch and hit her head, sustaining a laceration to back of her scalp. Patient was found to have a small laceration back of her hair under her ponytail, it was sutured by the ED physician. Patient offers no other complaints including shortness of breath, chest pain, nausea, vomiting, diarrhea, etc. After her significant other called. According to significant other. Patient had a history of alcohol abuse. Her last alcohol drink was on Thursday and she also had 1 seizure before she fell off of the couch. Patient is being admitted with alcohol withdrawal and alcohol-induced seizure for observation Home Medications Scheduled Escitalopram Oxalate (Escitalopram Oxalate) 20 Mg Tablet, 20 MG PO DAILY, (Reported) Scheduled PRN Trazodone HCl (Trazodone HCl) 50 Mg Tablet, 50 MG PO QHS PRN for SLEEP, (Reported) Allergies Coded Allergies: bee venom protein (honey bee) (Verified Allergy, Unknown, 02/03/19) Past Medical History Medical History None Surgical History None Family History Family history reviewed, no significant family history Social History * Smoker: Denies Alcohol: Denies Drugs: denies A-FIB/CHADSVASC A-FIB History Current/History of A-Fib/PAF?: No Review of Systems Constitutional: Denies: Chills, Fever, Malaise, Night Sweats, Weakness, Fatigue, Weight Loss, Lethargy, Other Eyes: Denies: Pain, Vision change, Conjunctivae inflammation, Eyelid inflammation, Redness, Other ENT: Denies: Head Aches, Ear Pain, Dysphagia, Sinus Congestion, Post Nasal D rip, Sore Throat, Epistaxis, Other Symptoms Skin: Denies: Rash, Lesions, Jaundice, Bruising, Itching, Dry, Breakdown, Nail Changes, Other Pulmonary: Denies: Dyspnea, Cough, Pleuritic Chest Pain, Other Symptoms Cardiovascular: Denies: Chest Pain, Palpitations, Orthopnea, Paroxysmal Noc. Dyspnea, Edema, Lt Headedness, Other Symptoms Gastrointestinal: Denies: Nausea, Vomiting, Abdominal Pain, Diarrhea, Constipat ion, Melena, Hematochezia, Other Symptoms Genitourinary: Denies: Dysuria, Frequency, Incontinence, Hematuria, Retention, Other Symptoms Hematologic: Denies: Bruising, Bleeding Excessively, Petecchia, Purpura, Enlarged Lymph Nodes, Other Hematologic Endocrine: Denies: Polydipsia, Polyphagia, Polyuria, Heat Intolerance, Cold Intolerance, Other Endocrine Sx Musculoskeletal: Denies: Neck Pain, Back Pain, Shoulder Pain, Arm Pain, Hand Pain, Leg Pain, Foot Pain, Joint Pain, Muscle Pain, Spasms, Other Symptoms Neurological: Denies: Weakness, Numbness, Incoordination, Change in speech, Confusion, Seizures, Other Symptoms Psych: Denies: Mood Normal, Anxiety, Depression, Memory Issues, Thoughts of Self Harm, Anger, Thoughts of Harming Other, Other Psych Physical Examination General Exam: Positive: Alert, Cooperative Eye Exam: Positive: PERRLA, Conjunctiva & lids normal ENT Exam: Positive: Atraumatic, Mucous membr. moist/pink Neck Exam: Positive: Supple Chest Exam: Positive: Clear to auscultation, Normal air movement Heart Exam: Positive: Rate Normal, Normal S1, Normal S2 Abdomen Exam: Positive: Soft Extremity Exam: Positive: Normal pulses Skin Exam: Positive: Nl turgor and temperature Neuro Exam: Positive: Strength at 5/5 X4 ext, Sensation Intact, Cranial Nerves 3-12 NL Psych Exam: Positive: Mood NL, Oriented x 3 Vital Signs Vital Signs Date Time Temp Pulse Resp B/P (MAP) Pulse Ox O2 Delivery O2 Flow Rate FiO2 04/06/20 00:33 95 04/06/20 00:30 117/67 (84) 04/06/20 00:18 93 04/05/20 21:22 18 Room Air 04/05/20 19:48 96.2 Laboratory Data Labs 24H Laboratory Tests 2 04/05/20 21:40: Immature Granulocyte % (Auto) 0.1, Neutrophils (%) (Auto) 80.6H, Lymphocytes (%) (Auto) 12.7L, Monocytes (%) (Auto) 5.9H, Eosinophils (%) (Auto) 0.6, Basophils (%) (Auto) 0.1, Neutrophils # (Auto) 5.6, Lymphocytes # (Auto) 0.9L, Monocytes # (Auto) 0.4, Eosinophils # (Auto) 0.0, Basophils # (Auto) 0.0, Nucleated Red Blood Cells % (auto) 0.0, Prothrombin Time 13.8, Prothromb Time International Ratio 1.09, Activated Partial Thromboplast Time 26.2, Anion Gap 11, Glomerular Filtration Rate > 60.0, Calcium Level 9.0, Magnesium Level 1.1L, Total Bilirubin 1.1H, Aspartate Amino Transf (AST/SGOT) 27, Alanine Aminotransferase (ALT/SGPT) 29, Alkaline Phosphatase 70, Total Protein 8.1, Albumin 3.4, Albumin/Globulin Ratio 0.7L, Ethyl Alcohol Level < 0.003 CBC/BMP Laboratory Tests 04/05/20 21:40 Problems (1) Alcohol withdrawal Status: Acute Problem Text: Admit to [facility] floor for observation IV fluids normal saline to 100 mL per hour Hymen and folic acid supplements have been ordered CIWA protocol with benzodiazepines Diet regular Activity as tolerated DVT prophylaxis with Lovenox (2) Seizure Status: Acute Problem Text: , Most likely alcohol withdrawal seizure Patient is completely asymptomatic at the present time Seizure precautions Ativan 2 mg IV every 4 hours when necessary for seizures Close observation (3) Hypokalemia Status: Acute Problem Text: Supplemented with KCl 40 mg 1 Repeat labs in a.m. (4) Hypomagnesemia Status: Acute Problem Text: Supplemented with mag sulfate 1 g IV 2 Check levels in a.m. Plan / VTE VTE Prophylaxis Ordered?: Yes KATIA RAMIREZ MD Apr 06, 2020 01:30
[2020-04-06] MEDS ORDERED: traZODone 50 MG TAB PO PRN (02:00)
[2020-04-06] MEDS: THIAMINE 100 MG TAB PO SCH ×3 (02:11→20:25)
[2020-04-06] MEDS: MAG SULF 1GM/100ML (MAG RUN) 1 GM in IV 1 EA IV SCH ×2 (02:11→03:27)
[2020-04-06] MEDS: NS 1,000 ML IV SCH ×2 (02:12→12:04)
[2020-04-06 05:47] LABS: HEMOGLOBIN 11.8 g/dl (12.0-15.5); MEAN CORPUSCULAR HEMOGLOBIN 34.1 pg (27.0-33.0); MEAN CORPUSCULAR HGB CONC 34.7 g/dl (32.0-36.5); MEAN CORPUSCULAR VOLUME 98.3 fl (80.0-96.0); PLATELET COUNT, AUTOMATED 124 10^3/uL (150-450); RED BLOOD COUNT 3.46 10^6/uL (4.00-5.40); WHITE BLOOD COUNT 6.7 10^3/uL (4.0-10.0)
[2020-04-06 06:11] LABS: ALT/SGPT 21 U/L (12-78); BILIRUBIN,TOTAL 0.8 MG/DL (0.2-1.0); BLOOD UREA NITROGEN 7 MG/DL (7-18); CALCIUM LEVEL 8.1 MG/DL (8.5-10.1); CARBON DIOXIDE LEVEL 30 MEQ/L (21-32); CHLORIDE LEVEL 98 MEQ/L (98-107); CREATININE FOR GFR 0.64 MG/DL (0.55-1.30); GLOMERULAR FILTRATION RATE > 60.0 (>60); GLUCOSE, FASTING 95 MG/DL (70-100); POTASSIUM SERUM 2.4 MEQ/L (3.5-5.1); SODIUM LEVEL 136 MEQ/L (136-145); TOTAL PROTEIN 7.5 GM/DL (6.4-8.2)
[2020-04-06] MEDS ORDERED: POTASSIUM CHLORIDE 10% LIQ 20 MEQ/15 ML UDC PO ONE (06:30)
[2020-04-06] MEDS: FOLIC ACID 1 MG TAB PO SCH (08:47)
[2020-04-06] MEDS: MULTIVITAMINS/MINERALS THERAP 1 TAB PO SCH (08:47)
[2020-04-06] MEDS: ESCITALOPRAM OXALATE 10 MG TAB (LEXAPRO) PO SCH (08:47)
[2020-04-06] MEDS: LORazepam 2 MG TAB PO PRN ×2 (08:48→12:04)
[2020-04-06] MEDS: ENOXAPARIN 40MG/0.4ML SYRINGE (J1650 PER 10MG) SC SCH (08:48)
--- NOTE | 2020-04-06 11:12 | REP ---
CT BRAIN WITHOUT IV CONTRAST: CT brain performed without IV contrast. Coronal reconstruction images are performed. COMPARISON: 12/08/2017 Ventricles are normal in size and position. There is no midline shift or mass effect. Hilton-white differentiation is well maintained. There is no acute intracranial hemorrhage or extra-axial fluid collection. 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 There appears to be a posterior scalp laceration. There is a small partially calcified subcutaneous nodule in the right parieto-occipital region similar to the prior study, having a benign appearance. No skull fracture is seen. IMPRESSION: No evidence of acute intracranial hemorrhage or skull fracture. Posterior scalp laceration. 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 Preliminary report provided by [facility] at the time of the exam. Electronically Signed by Guilherme Hilton MD 04/09/2020 09:46 P
[2020-04-06] MEDS ORDERED: LORazepam 2 MG TAB PO ONE (14:45)
--- NOTE | 2020-04-06 15:55 | IPNPDOC ---
Date Seen The patient was seen on 04/06/20. Progress Note SUBJECTIVE: Patient was seen and examined this morning. She currently has no complaints with exception to feeling tired. He has received Ativan for positive CIWA score. She's been afebrile, although slightly tachycardic. Patient otherwise has no complaints. OBJECTIVE PHYSICAL EXAMINATION: VITAL SIGNS: Please see below. GENERAL: Awake, alert, oriented. Appears in no acute distress, appears slightly diaphoretic, otherwise comfortable. HEENT:. Atraumatic, normocephalic. Eyes are nonicteric. Trachea is midline. mucous membranes are pink and moist CARDIOVASCULAR: Normal S1, S2. Tachycardic rate with a regular rhythm. No clicks, rubs or murmurs RESPIRATORY:. Clear vesicular breath sounds bilaterally. Good respiratory effort. No wheezes, rhonchi or rales. ABDOMINAL:. Soft, nondistended, nontender, no rebound tenderness or guarding. Normoactive bowel sounds throughout EXTREMITIES:. No edema. Full and equal pulses bilateral upper and lower extremities NEUROLOGICAL:. No focal neurological deficits PSYCHOLOGICAL:. Mood and affect appear appropriate. CIWA score of 8 LABORATORY DATA, IMAGING STUDIES, MICROBIOLOGY: Please see below. DVT prophylaxis ordered?: Lovenox ASSESSMENT AND PLAN: Patient is a 34-year-old female who presented to [facility] after falling off her couch and hitting her head. Supportive the patient is an alcoholic and her last drank on Thursday. Her boyfriend had reported the patient had what appeared to be a seizure secondary to withdrawal. Patient was admitted for alcohol withdrawal. PROBLEMS: 1. Alcohol withdrawal -Patient is an alcoholic. She states she drinks approximately 10 drinks a day. Regarding her choices fireball. She defines a drink as a "tall shot glass". Patient states that her last drink was Thursday. She states she has a history of alcohol withdrawal seizures in the past. She states that she had stopped drinking on Thursday because she is trying to quit. -Will continue with CIWA protocol. Patient is currently scoring between 8-10 on her CIWA score. She is receiving Ativan when necessary. No current indication for longer acting benzodiazepines such as Serax as literature does not show any improved benefit over short acting benzodiazepines in the setting of alcohol withdrawal. -Continue with seizure precautions -Continue, folic acid, Multivitamin and thiamine supplementation 2., Depression -Continue patient's home medications including trazodone and Lexapro. 3. DVT prophylaxis -Lovenox DISPOSITION: Patient currently not medically safe for discharge this time due to active withdrawal symptoms Attending attestation: I evaluated and examined the patient in person; I discussed the care with Resident in detail and agree with the plan above. VS, I&O, 24H, Fishbone Vital Signs/I&O Vital Signs Date Time Temp Pulse Resp B/P (MAP) Pulse Ox O2 Delivery O2 Flow Rate FiO2 04/06/20 14:00 88 102/67 04/06/20 06:00 96.1 18 97 Room Air I&O- Last 24 Hours up to 6 AM 04/06/20 06:00 Intake Total 1150 ml Output Total 0 ml Balance 1150 ml Laboratory Data 24H LABS Laboratory Tests 2 04/05/20 21:40: Immature Granulocyte % (Auto) 0.1, Neutrophils (%) (Auto) 80.6H, Lymphocytes (%) (Auto) 12.7L, Monocytes (%) (Auto) 5.9H, Eosinophils (%) (Auto) 0.6, Basophils (%) (Auto) 0.1, Neutrophils # (Auto) 5.6, Lymphocytes # (Auto) 0.9L, Monocytes # (Auto) 0.4, Eosinophils # (Auto) 0.0, Basophils # (Auto) 0.0, Nucleated Red Blood Cells % (auto) 0.0, Prothrombin Time 13.8, Prothromb Time International Ratio 1.09, Activated Partial Thromboplast Time 26.2, Anion Gap 11, Glomerular Filtration Rate > 60.0, Calcium Level 9.0, Magnesium Level 1.1L, Total Bilirubin 1.1H, Aspartate Amino Transf (AST/SGOT) 27, Alanine Aminotransferase (ALT/SGPT) 29, Alkaline Phosphatase 70, Total Protein 8.1, Albumin 3.4, Albumin/Globulin Ratio 0.7L, Ethyl Alcohol Level < 0.003 04/06/20 05:30: Nucleated Red Blood Cells % (auto) 0.0, Anion Gap 8, Glomerular Filtration Rate > 60.0, Calcium Level 8.1L, Magnesium Level 2.6H, Total Bilirubin 0.8, Aspartate Amino Transf (AST/SGOT) 22, Alanine Aminotransferase (ALT/SGPT) 21, Alkaline Phosphatase 54, Total Protein 7.5, Albumin 3.0L, Albumin/Globulin Ratio 0.7L CBC/BMP Laboratory Tests 04/05/20 21:40 04/06/20 05:30 04/06/20 08:01 TRUE CHÁVEZ DO Apr 06, 2020 15:55 FRANK HOLLIDAY MD Apr 09, 2020 08:17
[2020-04-06] MEDS ORDERED: LORazepam 1 MG TAB PO ONE (16:00)
--- NOTE | 2020-04-06 21:04 | ECGEPIP ---
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
[2020-04-07] VITALS: BP 107/69
[2020-04-07] MEDS: NS 1,000 ML IV SCH ×3 (00:37→10:16)
[2020-04-07 04:15] VITALS: BP 112/66
[2020-04-07 06:00] VITALS: BP 129/89
[2020-04-07 08:00] VITALS: BP 130/81
[2020-04-07] MEDS: MULTIVITAMINS/MINERALS THERAP 1 TAB PO SCH (08:32)
[2020-04-07] MEDS: ESCITALOPRAM OXALATE 10 MG TAB (LEXAPRO) PO SCH (08:32)
[2020-04-07] MEDS: THIAMINE 100 MG TAB PO SCH (08:32)
[2020-04-07] MEDS: FOLIC ACID 1 MG TAB PO SCH (08:32)
[2020-04-07] MEDS: ENOXAPARIN 40MG/0.4ML SYRINGE (J1650 PER 10MG) SC SCH (08:33)
[2020-04-07 10:06] LABS: HEMATOCRIT 32.3 % (36.0-47.0); HEMOGLOBIN 10.9 g/dl (12.0-15.5); MEAN CORPUSCULAR HEMOGLOBIN 34.1 pg (27.0-33.0); MEAN CORPUSCULAR HGB CONC 33.7 g/dl (32.0-36.5); MEAN CORPUSCULAR VOLUME 100.9 fl (80.0-96.0); PLATELET COUNT, AUTOMATED 134 10^3/uL (150-450); WHITE BLOOD COUNT 5.3 10^3/uL (4.0-10.0)
[2020-04-07 10:41] LABS: ALBUMIN 2.5 GM/DL (3.2-5.2); ALT/SGPT 19 U/L (12-78); BILIRUBIN,TOTAL 0.5 MG/DL (0.2-1.0); BLOOD UREA NITROGEN 3 MG/DL (7-18); CALCIUM LEVEL 7.8 MG/DL (8.5-10.1); CARBON DIOXIDE LEVEL 29 MEQ/L (21-32); CHLORIDE LEVEL 106 MEQ/L (98-107); CREATININE FOR GFR 0.52 MG/DL (0.55-1.30); GLOMERULAR FILTRATION RATE > 60.0 (>60); GLUCOSE, FASTING 97 MG/DL (70-100); MAGNESIUM LEVEL 1.8 MG/DL (1.8-2.4); PHOSPHORUS LEVEL 1.6 MG/DL (2.5-4.9); POTASSIUM SERUM 3.3 MEQ/L (3.5-5.1); SODIUM LEVEL 141 MEQ/L (136-145); TOTAL PROTEIN 6.2 GM/DL (6.4-8.2)
[2020-04-07] MEDS ORDERED: VITMTA PO (11:14)
[2020-04-07] MEDS ORDERED: MAGNESIUM OXIDE 400 MG TAB (MAG-OX) PO ONE (12:00)
[2020-04-07] MEDS ORDERED: POTASSIUM CHLORIDE 10 MEQ SR TABLET PO ONE (12:00)
[2020-04-07] MEDS ORDERED: POTASSIUM PHOSPHATE INJ 30 MMOL in D5W 500 ML IV ONE (13:00)
[2020-04-07 14:00] VITALS: BP 117/86
--- NOTE | 2020-04-07 14:36 | DS.PDOC ---
Discharge Summary General Date of Admission Apr 05, 2020 at 19:49 Date of Discharge 04/07/2020 Primary Care Physician: SEAMUS TEJEDA MD Attending Physician: FRANK HOLLIDAY MD Discharge Summary PROCEDURES PERFORMED DURING STAY: [None]. ADMITTING DIAGNOSES: 1. Alcohol Withdraw 2. Seizure 2/2 to Alcohol withdraw 3. Scalp Laceration DISCHARGE DIAGNOSES: 1. Alcohol Withdraw 2. Seizure 2/2 to Alcohol withdraw 3. Scalp Laceration COMPLICATIONS/CHIEF COMPLAINT: Alcohol Withdrawl, Seizure. HISTORY OF PRESENT ILLNESS: Patient is a 34-year-old female with a past medical history significant for alcohol abuse who presented to the emergency department on April 06 2020 after falling off the couch and hitting her head resulting in a laceration to the back of her scalp. Patient reported that she is a chronic drinker. She states her last drink was on Thursday, at which point she had tried to go cold turkey. Per the ED report, the patient stated that her and her partner were "fooling around" and she fell off the couch. However, the patient's significant other states that he had witnessed her have a seizure and she hit her head on the side of a coffee table. The patient did reveal that she normally has about 10 drinks a day. She defines a drink as 2-3 shots of fireball. In the emergency room the patient was tachycardic but otherwise vitally stable. She received CT imaging of her head was demonstrated no evidence of acute intracranial hemorrhage or skull fracture. Posterior scalp laceration was present. Patient was admitted for further evaluation and management of alcohol withdrawal HOSPITAL COURSE: On admission, patient was given IV fluids for hydration. She was given folic acid, multivitamins and thiamine.. Additionally, patient was found to be hypokalemic as well as hypomagnesemic. She received potassium and magnesium replacement therapy. Patient demonstrated no seizure activity during her hospitalization. The patient was placed on CIWA protocol. She did appear to be actively withdrawing during her first day of her hospitalization and received Ativan. On the day of discharge, her CIWA score was 0. The patient was given additional electrolyte supplementation and discharged home with follow with her primary care physician. DISCHARGE MEDICATIONS: Please see below. ALLERGIES: Please see below. PHYSICAL EXAMINATION ON DISCHARGE: VITAL SIGNS: Please see below. GENERAL: Awake alert, oriented, appears in no acute distress, lying comfortably in bed HEENT:. Small scalp laceration in the posterior occiput with staple in place, no rmocephalic. Eyes anicteric. Trachea is midline NECK:. No palpable cervical, axillary or supraclavicular lymphadenopathy CARDIOVASCULAR EXAMINATION:. Normal S1, S2, regular rate and rhythm. No clicks, rubs or murmurs RESPIRATORY EXAMINATION:. Clear vesicular breath sounds bilaterally. Good respiratory effort. No wheezes, rhonchi, rale ABDOMINAL EXAMINATION:, Soft, nondistended, nontender, normoactive bowel sounds EXTREMITIES: No edema. Full and equal pulses in bilateral upper and lower extremities SKIN: No rashes or lesions NEUROLOGICAL EXAMINATION: No focal neurological deficits PSYCHIATRIC EXAMINATION:. Mood and affect appear appropriate. Insight and judgment appropriate LABORATORY DATA: Please see below. IMAGING: CT brain performed without IV contrast. Coronal reconstruction images are performed. COMPARISON: 12/08/2017 Ventricles are normal in size and position. There is no midline shift or mass effect. Hilton-white differentiation is well maintained. There is no acute intracranial hemorrhage or extra-axial fluid collection. 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 There appears to be a posterior scalp laceration. There is a small partially calcified subcutaneous nodule in the right parieto-occipital region similar to the prior study, having a benign appearance. No skull fracture is seen. IMPRESSION: No evidence of acute intracranial hemorrhage or skull fracture. Posterior scalp laceration. 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 Preliminary report provided by [facility] at the time of the exam. Unreviewed DD: Guilherme Hilton MD, MD 04/06/20 1002 DT: GAVIN 04/06/20 1112 DS: PROGNOSIS: Good ACTIVITY: [As tolerated]. DIET: As tolerated; avoid alcohol DISCHARGE PLAN:. Patient is to be discharged home. She is to follow-up with her primary care physician in 7-10 days. Patient was advised to abstain from alcohol use. She was informed that if she does start drinking again that she should avoid going cold turkey as this can precipitate alcohol withdrawal and subsequently seizures DISCHARGE CONDITION: [Stable]. TIME SPENT ON DISCHARGE: Greater than 30 minutes. Attending attestation: I evaluated and examined the patient in person; I discussed the care with Resident in detail and agree with the plan above. Vital Signs/I&Os Vital Signs Date Time Temp Pulse Resp B/P (MAP) Pulse Ox O2 Delivery O2 Flow Rate FiO2 04/07/20 08:00 95 130/81 04/07/20 06:00 98.9 18 98 Room Air I&O- Last 24 Hours up to 6 AM 04/07/20 06:00 Intake Total 3680 ml Output Total 400 ml Balance 3280 ml Laboratory Data Labs 24H Laboratory Tests 2 04/07/20 09:36: Nucleated Red Blood Cells % (auto) 0.0, Anion Gap 6L, Glomerular Filtration Rate > 60.0, Calcium Level 7.8L, Phosphorus Level 1.6L, Magnesium Level 1.8, Total Bilirubin 0.5, Aspartate Amino Transf (AST/SGOT) 17, Alanine Aminotransferase (ALT/SGPT) 19, Alkaline Phosphatase 52, Total Protein 6.2L, Albumin 2.5L, Albumin/Globulin Ratio 0.7L CBC/BMP Laboratory Tests 04/07/20 09:36 Discharge Medications Scheduled Escitalopram Oxalate (Escitalopram Oxalate) 20 Mg Tablet, 20 MG PO DAILY, (Reported) Multivitamins (Thera M Plus Tablet) 1 Each Tablet, 1 TAB PO DAILY Scheduled PRN Trazodone HCl (Trazodone HCl) 50 Mg Tablet, 50 MG PO QHS PRN for SLEEP, (Reported) Allergies Coded Allergies: bee venom protein (honey bee) (Verified Allergy, Unknown, 02/03/19) TRUE CHÁVEZ DO Apr 07, 2020 14:36 FRANK HOLLIDAY MD Apr 09, 2020 08:28
== END 2020-04-07 19:28 | disposition home or self-care (01) ==
LOC: M ED 19:48 → M ED INP 19:49 → ENRESERV 04-06 02:10 → M MSPAV 04-06 03:12
PROVIDERS: ADMIT Internal Medicine; ATTEND Internal Medicine
DX: F10.230 Alcohol dependence with withdrawal, uncomplicated (principal); G40.89 Other seizures; S01.01XA Laceration without foreign body of scalp, initial encounter; W08.XXXA Fall from other furniture, initial encounter; Y92.098 Other place in other non-institutional residence as the place of occurrence of the external cause; E87.6 Hypokalemia; E83.42 Hypomagnesemia; R00.0 Tachycardia, unspecified; F32.9 Major depressive disorder, single episode, unspecified; Z79.899 Other long term (current) drug therapy; Z91.030 Bee allergy status; Z23 Encounter for immunization
CPT/HCPCS: 12002; 36415; 70450; 80053; 83735; 84100; 85025; 85027; 85610; 85730; 90471; 90715; 93005; 96361; 96365; 96372; 96375; 99285; G0480; J1650; J2060; J3475; Q0162

== ENCOUNTER → 2020-04-17 | Outpatient (REF) | payer OTHER ==
[~2020-04-17] MED LIST changes: +ESCI10TA16; -ESCI10TA2; -ESCI20TA PO; +ESCI20TA16 PO; +FERR1TAB8 PO; +MULTCAP PO
[2020-04-17 13:36] LABS: BLOOD UREA NITROGEN 7 MG/DL (7-18); CARBON DIOXIDE LEVEL 29 MEQ/L (21-32); CHLORIDE LEVEL 107 MEQ/L (98-107); CREATININE FOR GFR 0.64 MG/DL (0.55-1.30); GLOMERULAR FILTRATION RATE > 60.0 (>60); GLUCOSE, FASTING 73 MG/DL (70-100); POTASSIUM SERUM 4.4 MEQ/L (3.5-5.1); SODIUM LEVEL 142 MEQ/L (136-145)
== END ==
LOC: M SFHCPLAZ 10:58
PROVIDERS: ATTEND Family Medicine
DX: E87.6 Hypokalemia (principal)

== ENCOUNTER 2020-09-09 13:54 | Inpatient (IN) | payer OTHER ==
[~2020-09-09] VITALS: Ht 175.3 cm; Wt 99.2 kg
[~2020-09-09 13:54] MED LIST changes: -ESCI10TA16; +ESCI10TA2; +ESCI20TA PO; -ESCI20TA16 PO; -FERR1TAB8 PO; -MULTCAP PO
[2020-09-09] MEDS ORDERED: MULTIVITAMIN -ADULT INJECTION 10 ML, THIAMINE INJection 100 MG, FOLIC ACID 1 MG in NS 1... IV ONE (14:15)
[2020-09-09] MEDS ORDERED: OXAZEPAM 15 MG CAP PO ONE (14:15)
[2020-09-09 14:43] LABS: BASO % 0.2 % (0.0-1.0); EOS % 0.1 % (0.0-3.0); HEMATOCRIT 40.9 % (36.0-47.0); HEMOGLOBIN 14.1 g/dl (12.0-15.5); LYMPH # 1.9 10^3/uL (1.5-5.0); LYMPH % 21.9 % (24.0-44.0); MEAN CORPUSCULAR HEMOGLOBIN 32.2 pg (27.0-33.0); MEAN CORPUSCULAR HGB CONC 34.5 g/dl (32.0-36.5); MEAN CORPUSCULAR VOLUME 93.4 fl (80.0-96.0); MONO # 0.7 10^3/uL (0.0-0.8); MONO % 8.5 % (0.0-5.0); PLATELET COUNT, AUTOMATED 238 10^3/uL (150-450); RED BLOOD COUNT 4.38 10^6/uL (4.00-5.40); WHITE BLOOD COUNT 8.7 10^3/uL (4.0-10.0)
--- NOTE | 2020-09-09 15:09 | REP ---
INDICATION: SOB. COMPARISON: 02/22/2020 TECHNIQUE: AP portable chest FINDINGS: Lungs are well inflated. There are subtle patchy atelectasis or infiltrates in both lower lung zones. No visible pleural effusion or lateral pleural thickening. No parenchymal nodule or mass. Heart, mediastinal and hilar contours were unremarkable. The aorta and airway are intact. Bony thorax unremarkable. No free air. IMPRESSION: 1. Bilateral basilar subtle patchy infiltrates or atelectasis without visible effusion, dense consolidation with air bronchograms, pulmonary nodule, pleural thickening or other acute finding. <Electronically signed by Mayo Gaines > 09/09/20 [id number]
[2020-09-09 15:13] LABS: ACETAMINOPHEN LEVEL < 2.0 UG/ML (10.0-30.0); ALBUMIN 4.1 GM/DL (3.2-5.2); ALT/SGPT 22 U/L (12-78); BILIRUBIN,DIRECT 0.4 MG/DL (0.0-0.2); BILIRUBIN,TOTAL 1.2 MG/DL (0.2-1.0); BLOOD UREA NITROGEN 10 MG/DL (7-18); CALCIUM LEVEL 9.7 MG/DL (8.5-10.1); CARBON DIOXIDE LEVEL 28 MEQ/L (21-32); CHLORIDE LEVEL 85 MEQ/L (98-107); CREATININE FOR GFR 1.34 MG/DL (0.55-1.30); ETHYL ALCOHOL (ETHANOL) < 0.003 % (0.000-0.010); GLOMERULAR FILTRATION RATE 47.6 (>60); GLUCOSE, FASTING 160 MG/DL (70-100); LIPASE 70 U/L (73-393); MAGNESIUM LEVEL 1.3 MG/DL (1.8-2.4); POTASSIUM SERUM 2.8 MEQ/L (3.5-5.1); SALICYLATE LEVEL < 1.7 MG/DL (5.0-30.0); SODIUM LEVEL 129 MEQ/L (136-145); TOTAL PROTEIN 8.8 GM/DL (6.4-8.2)
[2020-09-09] MEDS ORDERED: KCL 10MEQ/100ML SWI (KRUN) 10 MEQ in IV 1 EA IV ONE (15:45)
[2020-09-09] MEDS ORDERED: MAG SULF 1GM/100ML (MAG RUN) 1 GM in IV 1 EA IV ONE (15:45)
[2020-09-09] MEDS ORDERED: LORazepam 2 MG TAB PO PRN ×2 (17:15→17:45)
[2020-09-09] MEDS ORDERED: MULTCAP PO (17:18)
[2020-09-09] MEDS ORDERED: FERR1TAB8 PO (17:19)
[2020-09-09 17:30] LABS: AMPHETAMINES LEVEL URINE NEGATIVE (NEGATIVE); BARBITURATES URINE NEGATIVE (NEGATIVE); BENZODIAZEPINES URINE POSITIVE (NEGATIVE); CANNABINOIDS URINE POSITIVE (NEGATIVE); COCAINE METABOLITE URINE NEGATIVE (NEGATIVE); METHADONE URINE NEGATIVE (NEGATIVE); OPIATES URINE NEGATIVE (NEGATIVE); PHENCYCLIDINE URINE NEGATIVE (NEGATIVE)
[2020-09-09] MEDS ORDERED: ACETAMINOPHEN TAB 650MG DOSE (2X325MG) PO PRN (17:45)
[2020-09-09] MEDS ORDERED: ONDANSETRON 4MG/2ML VIAL IV PRN (17:45)
--- NOTE | 2020-09-09 18:00 | HPEPDOC ---
[facility] Medical History & Physical Date of Admission Sep 09, 2020 Date of Service: Sep 09, 2020 History and Physical Chief complaint: Presented to the ER after experiencing worsening cramping History of present illness: Patient is a 35-year-old female with a PMHx of Alcohol dependence (Hx of withdrawls and seizures), Depression, Insomnia, who presented to the ER after she had worsening cramping. Patient reports that her last drink of alcohol was night. Early Thursday morning patient began to experience vomiting, sweating and was unable to tolerate any oral intake. Patient reported that her symptoms continued throughout the day and Thursday she had noted some improvement, however, not full resolution. On Thursday / Today patient reported the inability to keep down some food. They reported that they went out for a drive with her boyfriend later that afternoon began to experience cramping and came to the emergency room for further evaluation. Patient has reported that since Thursday morning, she has vomited greater than 20 times described as mostly fluid without any evidence of blood Currently patient denies any chest pain. Does report some shortness of breath with a dry cough and palpitations. Patient denies any abdominal pain or constipation. Does report some diarrhea described as loose bowel movements this morning patient experiences chills but denies any fevers. Past Medical History: Alcohol dependence (Hx of withdrawls and seizures), Depression, Insomnia Past Surgical History: Tooth extraction Allergies: See below Medications: See below Family History: - Mother with a history of heart disease and diabetes - Father; patient reports that she is unsure of any medical history of her father Social History: - Patient reports that she doesnt smoke but does use marijuana and CBD patient uses alcohol regularly, last use was on reported 10 shots usually or a 12 pack of beer - Denies recent travel or sick contacts - Lives with fianc and son - Occupation; currently patient is unemployed Review of Systems: 10 point review of systems complete, all negative otherwise stated in HPI Physical exam: - Vitals: BP [140/83], HR [109], RR [24], Sat [99%NC2L], Temp [97.4F] - General: Lying in bed, No acute distress, Speaking in full sentences, AAOx3 - HEENT: NC, AT, PERRLA - CVS: Mildly tachycardic, +S1S2 - Lungs: Fair air entry bilaterally, No appreciable wheezing / rales / rhonchi - Abdomen: Soft, Non-distended, Non-tender - Extremities: No lower extremity edema, No calf tenderness - Neuro: No focal motor or sensory deficit - Skin: No visible rashes Assessment and Plan: Alcohol withdrawal - In ER, patient was expressing tremors, tachycardic, anxious - Patient has a history of alcohol withdrawal dependence and withdrawal seizures - Patient has received a banana bag in the emergency room - Will continue with thiamine, folate and multivitamins - Will continue with CIWA protocol - Fall precautions / Seizure precautions - Will start Serax and taper down in next 24-48 hours Acute kidney injury - likely 2/2 pre-renal etiology - Patient has normal kidney function at baseline; creatinine on admission of 1.34 - Will start IV fluid hydration Hyponatremia - likely 2/2 hypotonic hypovolemic etiology, less likely 2/2 medications - Currently patient appears to be dehydrated - She has been chronically on Escitalopram / Trazodone; will hold for now - however likely resume in 24 hours - Will check urine and serum osmolality, urine electrolytes, TSH, cortisol - Will repeat BMP in 6 hours Hypokalemia - likely 2/2 vomiting - Will supplement via IV and PO routes - Will supplement IV fluid with potassium Hypomagnesemia - Will supplement via IV routes AG metabolic acidosis - Delta / Delta of 1; likely pure AG metabolic acidosis - Will check Lactic acid - c/w IV fluid hydration Hx of Macrocytic anemia - Likely normalized now 2/2 hemoconcentration - c/w IV fluid hydration Hx of Thrombocytopenia - Likely normalized now 2/2 hemoconcentration - c/w IV fluid hydration Depression - Will hold Escitalopram (Re: Hyponatremia) Insomnia - Will hold Trazodone (Re: Hyponatremia) Gastrointestinal prophylaxis - Will start Protonix DVT prophylaxis - Will start Heparin Vital Signs Vital Signs Date Time Temp Pulse Resp B/P (MAP) Pulse Ox O2 Delivery O2 Flow Rate FiO2 09/09/20 17:30 106 22 123/83 (96) 97 Room Air 09/09/20 14:00 97.4 Laboratory Data Labs 24H Laboratory Tests 2 09/09/20 14:34: Immature Granulocyte % (Auto) 0.3, Neutrophils (%) (Auto) 69.0H, Lymphocytes (%) (Auto) 21.9L, Monocytes (%) (Auto) 8.5H, Eosinophils (%) (Auto) 0.1, Basophils (%) (Auto) 0.2, Neutrophils # (Auto) 6.0, Lymphocytes # (Auto) 1.9, Monocytes # (Auto) 0.7, Eosinophils # (Auto) 0.0, Basophils # (Auto) 0.0, Nucleated Red Blood Cells % (auto) 0.0, Anion Gap 16, Glomerular Filtration Rate 47.6L, Calcium Level 9.7, Magnesium Level 1.3L, Total Bilirubin 1.2H, Direct Bilirubin 0.4H, Aspartate Amino Transf (AST/SGOT) 20, Alanine Aminotransferase (ALT/SGPT) 22, Alkaline Phosphatase 59, Total Protein 8.8H, Albumin 4.1, Albumin/Globulin Ratio 0.9L, Lipase 70L, Salicylates Level < 1.7L, Acetaminophen Level < 2.0L, Ethyl Alcohol Level < 0.003 09/09/20 16:48: Urine Opiates Screen NEGATIVE, Urine Methadone Screen NEGATIVE, Urine Charo iturates Screen NEGATIVE, Urine Phencyclidine Screen NEGATIVE, Urine Amphetamines Screen NEGATIVE, Urine Benzodiazepines Screen POSITIVEH, Urine Cocaine Metabolite Screen NEGATIVE, Urine Cannabinoids Screen POSITIVEH, Coronavirus (COVID-19)(PCR) NEGATIVE CBC/BMP Laboratory Tests 09/09/20 14:34 Home Medications Scheduled Escitalopram Oxalate (Escitalopram Oxalate) 20 Mg Tablet, 20 MG PO DAILY Ferrous Sulfate (Ferrous Sulfate) 325 Mg Tablet, 325 MG PO DAILY Multivitamin (Multivitamins) 1 Each Capsule, 1 CAP PO DAILY Scheduled PRN Trazodone HCl (Trazodone HCl) 50 Mg Tablet, 50 MG PO QHS PRN for SLEEP Allergies Coded Allergies: bee venom protein (honey bee) (Verified Allergy, Unknown, 02/03/19) EZEQUIEL HOLLAND MD Sep 09, 2020 18:00
[2020-09-09 18:05] LABS: OSMOLALITY SERUM 276 MOSM/KG (275-295)
[2020-09-09] MEDS: KCL 40MEQ in NS 1000ML 1,000 ML IV SCH (18:33)
[2020-09-09] MEDS ORDERED: POTASSIUM CHLORIDE 10 MEQ SR TABLET PO ONE ×2 (20:00→22:45)
[2020-09-09] MEDS: MAG SULF 1GM/100ML (MAG RUN) 1 GM in IV 1 EA IV SCH ×2 (20:06→21:39)
[2020-09-09] MEDS ORDERED: THIAMINE 100 MG TAB PO SCH (21:00)
[2020-09-09] MEDS ORDERED: PANTOPRAZOLE 40MG VIAL (C9113 PER 1) IV SCH (21:00)
[2020-09-09 22:22] VITALS: BP 125/74
[2020-09-09 22:30] VITALS: BP 125/74
[2020-09-09 22:39] LABS: BLOOD UREA NITROGEN 8 MG/DL (7-18); CALCIUM LEVEL 8.3 MG/DL (8.5-10.1); CARBON DIOXIDE LEVEL 32 MEQ/L (21-32); CHLORIDE LEVEL 93 MEQ/L (98-107); CREATININE FOR GFR 0.85 MG/DL (0.55-1.30); GLOMERULAR FILTRATION RATE > 60.0 (>60); GLUCOSE, FASTING 112 MG/DL (70-100); MAGNESIUM LEVEL 2.5 MG/DL (1.8-2.4); POTASSIUM SERUM 2.6 MEQ/L (3.5-5.1); SODIUM LEVEL 134 MEQ/L (136-145)
[2020-09-09] MEDS: OXAZEPAM 15 MG CAP PO SCH (23:02)
[2020-09-09] MEDS: HEPARIN SOD (PORCINE) 5000UNITS/ML 1ML VIAL/SYRINGE SC SCH (23:03)
[2020-09-10] VITALS: BP 129/86
[2020-09-10 04:00] VITALS: BP 118/71
[2020-09-10 04:01] LABS: BLOOD UREA NITROGEN 8 MG/DL (7-18); CALCIUM LEVEL 7.2 MG/DL (8.5-10.1); CARBON DIOXIDE LEVEL 31 MEQ/L (21-32); CHLORIDE LEVEL 100 MEQ/L (98-107); CREATININE FOR GFR 0.73 MG/DL (0.55-1.30); GLOMERULAR FILTRATION RATE > 60.0 (>60); GLUCOSE, FASTING 93 MG/DL (70-100); POTASSIUM SERUM 3.4 MEQ/L (3.5-5.1); SODIUM LEVEL 136 MEQ/L (136-145)
[2020-09-10] MEDS: KCL 40MEQ in NS 1000ML 1,000 ML IV SCH ×2 (04:59→10:40)
[2020-09-10] MEDS: OXAZEPAM 15 MG CAP PO SCH (05:00)
[2020-09-10] MEDS: HEPARIN SOD (PORCINE) 5000UNITS/ML 1ML VIAL/SYRINGE SC SCH ×2 (05:01→14:00)
[2020-09-10] MEDS ORDERED: POTASSIUM CHLORIDE 10 MEQ SR TABLET PO ONE ×2 (07:15→09:45)
[2020-09-10 07:26] LABS: BASO % 0.4 % (0.0-1.0); EOS # 0.1 10^3/uL (0.0-0.5); EOS % 1.4 % (0.0-3.0); HEMATOCRIT 35.8 % (36.0-47.0); HEMOGLOBIN 11.9 g/dl (12.0-15.5); LYMPH # 1.8 10^3/uL (1.5-5.0); MEAN CORPUSCULAR HEMOGLOBIN 32.6 pg (27.0-33.0); MEAN CORPUSCULAR HGB CONC 33.2 g/dl (32.0-36.5); MEAN CORPUSCULAR VOLUME 98.1 fl (80.0-96.0); MONO # 0.4 10^3/uL (0.0-0.8); MONO % 8.1 % (0.0-5.0); NEUTROPHILS # 2.6 10^3/uL (1.5-8.5); NEUTROPHILS % 52.9 % (36.0-66.0); PLATELET COUNT, AUTOMATED 165 10^3/uL (150-450); RED BLOOD COUNT 3.65 10^6/uL (4.00-5.40)
[2020-09-10 07:53] LABS: BLOOD UREA NITROGEN 7 MG/DL (7-18); CALCIUM LEVEL 7.7 MG/DL (8.5-10.1); CARBON DIOXIDE LEVEL 31 MEQ/L (21-32); CHLORIDE LEVEL 102 MEQ/L (98-107); CREATININE FOR GFR 0.59 MG/DL (0.55-1.30); GLOMERULAR FILTRATION RATE > 60.0 (>60); GLUCOSE, FASTING 93 MG/DL (70-100); MAGNESIUM LEVEL 2.6 MG/DL (1.8-2.4); POTASSIUM SERUM 3.1 MEQ/L (3.5-5.1); SODIUM LEVEL 138 MEQ/L (136-145)
[2020-09-10 08:00] VITALS: BP 134/61
[2020-09-10] MEDS ORDERED: FOLIC ACID 1 MG TAB PO SCH ×2 (09:00)
[2020-09-10] MEDS ORDERED: MULTIVITAMINS/MINERALS THERAP 1 TAB PO SCH ×2 (09:00)
[2020-09-10] MEDS ORDERED: FERROUS SULFATE 325MG TAB PO SCH (09:00)
[2020-09-10] MEDS ORDERED: THIAMINE 100 MG TAB PO SCH (09:00)
--- NOTE | 2020-09-10 09:44 | ECGEPIP ---
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
[2020-09-10 10:01] LABS: CORTISOL BASELINE 46.4 UG/DL (4.3-22.4)
--- NOTE | 2020-09-10 11:13 | DS.PDOC ---
Discharge Summary General Date of Admission Sep 09, 2020 at 17:37 Date of Discharge 09/10/20 Attending Physician: DAE FISCHER MD Discharge Summary PROCEDURES PERFORMED DURING STAY: None ADMITTING DIAGNOSES: 1. Alcohol Withdrawal 2. JUAN 3. Hyponatremia 4. Hypokalemia 5. Hypomagnesmia DISCHARGE DIAGNOSES: 1. Alcohol Withdrawal COMPLICATIONS/CHIEF COMPLAINT: Cramping HISTORY OF PRESENT ILLNESS: Angelica Man is a 35 yr old female w/ PMH of depression, anxiety, insomnia, seizures presented to the ED w/ cramping. Ms. Man states that she last had a drink of alcohol on . She states that she had experienced vomiting, sweating, and was unable to tolerate any oral inta ke on Thursday morning. These symptoms continued throughout the day. Thursday, she noted that there had been some improvement. On Thursday, patient was unable to keep down food. Went on a drive with her boyfriend later in the afternoon and began to experience cramping and came to the ED for further evaluation. Patient stated she vomited a lot, roughly 20 times, but did not report any blood. Patient last remembers drinking a 12 pack of beer, a "tall boy," and some shots throughout the day on . HOSPITAL COURSE: Patient given thiamine, banana bag, folate, in ED, started on Serax 30 mg PO and tapered down within 24-48 hours. Was started on IV fluid hydration and potassium. Patient has full resolution of her electrolyte abnormalities in her kidney function had normalized. Upon reevaluation of patient this morning patient had full resolution of her alcohol withdrawal symptoms and was discontinued from Serax. She has been off Serax for 12 hours without any recurrence of her symptoms. Patient was subsequently discharged home with instructions to follow up with her primary care provider as well as a referral for alcohol rehabilitation services. DISCHARGE MEDICATIONS: Please see below. ALLERGIES: Please see below. PHYSICAL EXAMINATION ON DISCHARGE: VITAL SIGNS: Please see below. GENERAL: Patient in no acute distress, alert and oriented x3 CARDIOVASCULAR EXAMINATION: RRR, no murmurs or gallops, normal S1 and S2 RESPIRATORY EXAMINATION: Lungs clear to auscultation bilaterally, no wheezing or crackles ABDOMINAL EXAMINATION: Abdomen soft, nontender, nondistended, normal bowel sounds x4, no hepatosplenomegaly EXTREMITIES: +2/4 pedal pulses bilaterally, 5/5 strength testing in upper and lower extremities bilaterally, no pitting edema bilaterally NEUROLOGICAL EXAMINATION: Cranial nerves 2-12 intact, pinprick and light touch sensation intact in upper and lower extremities bilaterally PSYCHIATRIC EXAMINATION: Patient oriented in time, person, and place LABORATORY DATA: Please see below. IMAGING: -Chest x-ray on 09/09/[address] Gaines shows bilateral basal subtle patchy infiltrates or atelectasis w/o visible effusion, dense consolidation w/ air bronchograms, pulmonary nodules, pleural thickening or other acute finding PROGNOSIS: Good ACTIVITY: Full activity DIET: Regular Diet DISCHARGE PLAN: 1. Patient has potassium trending down from 3.4 to 3.1; Labs came back at noon and showed normal potassium levels of 3.7 2. CIWA protocol score at noon was 0 2. Patient advised to follow up w/ PCP 7-10 days, discuss alcohol rehabilitation DISCHARGE INSTRUCTIONS: 1. Follow up w/ PCP 7-10 days, abstain from alcohol ITEMS TO FOLLOWUP ON ON OUTPATIENT: 1. Alcohol rehabilitation DISCHARGE CONDITION: Stable TIME SPENT ON DISCHARGE: 35 minutes. Vital Signs/I&Os Vital Signs Date Time Temp Pulse Resp B/P (MAP) Pulse Ox O2 Delivery O2 Flow Rate FiO2 09/10/20 08:00 96.7 76 17 134/61 (85) 94 Room Air I&O- Last 24 Hours up to 6 AM 09/10/20 05:59 Intake Total 1970 ml Output Total 400 ml Balance 1570 ml Laboratory Data Labs 24H Laboratory Tests 2 09/09/20 14:34: Immature Granulocyte % (Auto) 0.3, Neutrophils (%) (Auto) 69.0H, Lymphocytes (%) (Auto) 21.9L, Monocytes (%) (Auto) 8.5H, Eosinophils (%) (Auto) 0.1, Basophils (%) (Auto) 0.2, Neutrophils # (Auto) 6.0, Lymphocytes # (Auto) 1.9, Monocytes # (Auto) 0.7, Eosinophils # (Auto) 0.0, Basophils # (Auto) 0.0, Nucleated Red Blood Cells % (auto) 0.0, Anion Gap 16, Glomerular Filtration Rate 47.6L, Osmolality 276, Calcium Level 9.7, Magnesium Level 1.3L, Total Bilirubin 1.2H, Direct Bilirubin 0.4H, Aspartate Amino Transf (AST/SGOT) 20, Alanine Aminotransferase (ALT/SGPT) 22, Alkaline Phosphatase 59, Total Protein 8.8H, Albumin 4.1, Albumin/Globulin Ratio 0.9L, Lipase 70L, Thyroid Stimulating Hormone (TSH) 1.300, Cortisol Baseline 46.4H, Salicylates Level < 1.7L, Acetaminophen Level < 2.0L, Ethyl Alcohol Level < 0.003 09/09/20 16:48: Urine Opiates Screen NEGATIVE, Urine Methadone Screen NEGATIVE, Urine Barbiturates Screen NEGATIVE, Urine Phencyclidine Screen NEGATIVE, Urine Amphetamines Screen NEGATIVE, Urine Benzodiazepines Screen POSITIVEH, Urine Cocaine Metabolite Screen NEGATIVE, Urine Cannabinoids Screen POSITIVEH, Coronavirus (COVID-19)(PCR) NEGATIVE 09/09/20 19:52: Lactic Acid Level 4.7*H 09/09/20 21:30: Anion Gap 9, Glomerular Filtration Rate > 60.0, Calcium Level 8.3L, Magnesium Level 2.5H 09/10/20 03:25: Anion Gap 5L, Glomerular Filtration Rate > 60.0, Lactic Acid Level 1.8, Calcium Level 7.2L 09/10/20 07:14: Anion Gap 5L, Glomerular Filtration Rate > 60.0, Calcium Level 7.7L, Immature Granulocyte % (Auto) 0.2, Neutrophils (%) (Auto) 52.9, Lymphocytes (%) (Auto) 37.0, Monocytes (%) (Auto) 8.1H, Eosinophils (%) (Auto) 1.4, Basophils (%) (Auto) 0.4, Neutrophils # (Auto) 2.6, Lymphocytes # (Auto) 1.8, Monocytes # (Auto) 0.4, Eosinophils # (Auto) 0.1, Basophils # (Auto) 0.0, Nucleated Red Blood Cells % (auto) 0.0, Magnesium Level 2.6H CBC/BMP Laboratory Tests 09/09/20 14:34 09/09/20 21:30 09/10/20 03:25 09/10/20 07:14 Discharge Medications Scheduled Escitalopram Oxalate (Escitalopram Oxalate) 20 Mg Tablet, 20 MG PO DAILY, (Reported) Ferrous Sulfate (Ferrous Sulfate) 325 Mg Tablet, 325 MG PO DAILY, (Reported) Multivitamin (Multivitamins) 1 Each Capsule, 1 CAP PO DAILY, (Reported) Scheduled PRN Trazodone HCl (Trazodone HCl) 50 Mg Tablet, 50 MG PO QHS PRN for SLEEP, (Reported) Allergies Coded Allergies: bee venom protein (honey bee) (Verified Allergy, Unknown, 02/03/19) GME ATTESTATION GME ATTESTATION My faculty preceptor for this patient encounter was physically present during the encounter and was fully available. All aspects of the patient interview, examination, medical decision making process, and medical care plan development were reviewed and approved by the faculty preceptor. The faculty preceptor is aware and concurs with the plan as stated in the body of this note and will attest to such by his/her cosignature. ATTENDING NOTE I, Dae Fischer, have independently examined this patient and performed my own physical exam, as well as reviewed the documentation and edited where necessary. I have discussed in detail with the resident / student the findings and plan of treatment as documented by the resident / student and edited their note. I agree with their findings and treatment plan and have edited their documentation. I will continue to follow the patient during this hospital stay. Time spent on discharge 35 minutes PARI ERVIN OMS-IV Sep 10, 2020 11:13 DAE FISCHER MD Sep 10, 2020 15:36
[2020-09-10 12:00] VITALS: BP 123/76
[2020-09-10 12:56] LABS: BLOOD UREA NITROGEN 7 MG/DL (7-18); CALCIUM LEVEL 7.6 MG/DL (8.5-10.1); CARBON DIOXIDE LEVEL 31 MEQ/L (21-32); CHLORIDE LEVEL 104 MEQ/L (98-107); CREATININE FOR GFR 0.65 MG/DL (0.55-1.30); GLOMERULAR FILTRATION RATE > 60.0 (>60); GLUCOSE, FASTING 85 MG/DL (70-100); MAGNESIUM LEVEL 2.5 MG/DL (1.8-2.4); POTASSIUM SERUM 3.7 MEQ/L (3.5-5.1); SODIUM LEVEL 139 MEQ/L (136-145)
[2020-09-10] MEDS ORDERED: OXAZEPAM 10 MG CAP PO SCH (18:00)
== END 2020-09-10 14:30 | disposition home or self-care (01) | DRG 775 ==
LOC: M ED 13:54 → M ED INP 17:37 → ENRESERV 20:27 → M PCU 22:18
PROVIDERS: ADMIT Internal Medicine; ATTEND Internal Medicine
DX: F10.239 Alcohol dependence with withdrawal, unspecified (principal); N17.9 Acute kidney failure, unspecified; E87.2 Acidosis; E83.42 Hypomagnesemia; E87.1 Hypo-osmolality and hyponatremia; E87.6 Hypokalemia; F32.9 Major depressive disorder, single episode, unspecified; F41.9 Anxiety disorder, unspecified; G47.00 Insomnia, unspecified; Z91.030 Bee allergy status; Z79.899 Other long term (current) drug therapy

== ENCOUNTER → 2020-09-24 | Outpatient (REF) | payer OTHER ==
[~2020-09-24] MED LIST changes: +FERR1TAB8 PO; +MULTCAP PO
[2020-09-24 18:32] LABS: ALBUMIN 3.8 GM/DL (3.2-5.2); ALT/SGPT 21 U/L (12-78); BILIRUBIN,TOTAL 0.5 MG/DL (0.2-1.0); BLOOD UREA NITROGEN 8 MG/DL (7-18); CARBON DIOXIDE LEVEL 29 MEQ/L (21-32); CHLORIDE LEVEL 102 MEQ/L (98-107); GLOMERULAR FILTRATION RATE > 60.0 (>60); GLUCOSE, FASTING 103 MG/DL (70-100); SODIUM LEVEL 137 MEQ/L (136-145); TOTAL PROTEIN 8.3 GM/DL (6.4-8.2)
== END ==
LOC: M LAB REF 16:23
PROVIDERS: ATTEND Physician Assistant
DX: F10.20 Alcohol dependence, uncomplicated (principal)

== ENCOUNTER → 2021-09-09 | Outpatient (CLI) | payer OTHER ==
[~2021-09-09] MED LIST changes: +ESCI10TA16; -ESCI10TA2; -ESCI20TA PO; +ESCI20TA16 PO; -MAGN400T3 PO; +MAGN400T33 PO
--- NOTE | 2021-09-09 17:18 | REP ---
INDICATION: ANATOMY. COMPARISON: None. TECHNIQUE: Real-time sonographic evaluation of the gravid uterus performed. FINDINGS: Estimated gestational age is21 weeks 3 days, EDC 1822. Today's measurements indicate appropriate growth. Presentation: Transverse Placenta posterior, grade 1, without evidence of placenta previa. heart rate is recorded at 161 beats per minute. Amniotic fluid is subjectively normal. Closed cervical length is measured at 4.9 cm. Biometry chart: BPD: 52 mm, 21 weeks 5 days, 55th percentile. HC: 193 mm, 21 weeks 4 days, 54th percentile AC: 11/09/2061 mm, 21 weeks 2 days, 47th percentile Femur length: 35 mm, 21 weeks 1 days, 44th percentile HC to AC ratio: 1.19, normal range 1.05-1.24. Estimated weight: 413g, 37th percentile. anatomy: Cranium: Grossly normal Lateral Ventricles/Choroid Plexus: Grossly normal Posterior Fossa/Cerebellum: Grossly normal Nose/lips/profile: Grossly normal Four chamber heart: Grossly normal Right ventricular outflow tract: Grossly normal Left ventricular outflow tract: Grossly normal Left-sided stomach: Grossly normal Kidneys: Grossly normal Bladder: Grossly normal Cord Insertion: Grossly normal 3 vessel cord: Grossly normal Spine: Not well seen due to position IMPRESSION: Viable single intrauterine gestation as above. <Electronically signed by Guilherme Hilton > 09/09/21 [id number]
== END ==
LOC: M WHC 09:50
PROVIDERS: ATTEND Advanced Practice Midwife
DX: Z36.9 Encounter for antenatal screening, unspecified (principal); O99.342 Other mental disorders complicating pregnancy, second trimester; Z3A.21 21 weeks gestation of pregnancy

== ENCOUNTER → 2021-11-08 | Outpatient (CLI) | payer OTHER | LOC: M WHC 13:50 | PROVIDERS: ATTEND Obstetrics & Gynecology | DX: O09.523 Supervision of elderly multigravida, third trimester (principal); Z3A.32 32 weeks gestation of pregnancy ==

== ENCOUNTER → 2021-11-22 | Outpatient (CLI) | payer OTHER | LOC: M RAD 12:08 | PROVIDERS: ATTEND Advanced Practice Midwife | DX: O09.529 Supervision of elderly multigravida, unspecified trimester (principal); O36.5930 Maternal care for other known or suspected poor fetal growth, third trimester, not applicable or unspecified; Z3A.30 30 weeks gestation of pregnancy ==

== ENCOUNTER → 2021-12-03 | Outpatient (CLI) | payer OTHER | LOC: M WHC 14:00 | PROVIDERS: ATTEND Advanced Practice Midwife | DX: O36.5930 Maternal care for other known or suspected poor fetal growth, third trimester, not applicable or unspecified (principal) ==

== ENCOUNTER → 2021-12-06 | Outpatient (CLI) | payer OTHER | LOC: M WHC 09:46 | PROVIDERS: ATTEND Advanced Practice Midwife | DX: O36.5930 Maternal care for other known or suspected poor fetal growth, third trimester, not applicable or unspecified (principal); O09.529 Supervision of elderly multigravida, unspecified trimester; Z3A.34 34 weeks gestation of pregnancy ==

== ENCOUNTER → 2021-12-10 | Outpatient (CLI) | payer OTHER ==
[~2021-12-10] MED LIST changes: +POTA540T PO
== END ==
LOC: M WHC 13:22
PROVIDERS: ATTEND Advanced Practice Midwife
DX: O36.5930 Maternal care for other known or suspected poor fetal growth, third trimester, not applicable or unspecified (principal); Z3A.34 34 weeks gestation of pregnancy

== ENCOUNTER → 2021-12-17 | Outpatient (CLI) | payer OTHER ==
[~2021-12-17] MED LIST changes: -POTA540T PO
== END ==
LOC: M WHC 13:55
PROVIDERS: ATTEND Advanced Practice Midwife
DX: O36.5930 Maternal care for other known or suspected poor fetal growth, third trimester, not applicable or unspecified (principal); Z3A.00 Weeks of gestation of pregnancy not specified

== ENCOUNTER → 2021-12-17 | Outpatient (REF) | payer OTHER | LOC: M PLALAB 10:01 | PROVIDERS: ATTEND Obstetrics & Gynecology | DX: Z36.89 Encounter for other specified antenatal screening (principal); Z3A.35 35 weeks gestation of pregnancy ==

== ENCOUNTER → 2022-03-04 | Outpatient (CLI) | payer OTHER ==
[~2022-03-04] MED LIST changes: +POTA540T PO
== END ==
LOC: M OUTALCOH 07:57
PROVIDERS: ATTEND Psychiatry & Neurology Psychiatry
DX: Z03.89 Encounter for observation for other suspected diseases and conditions ruled out (principal)

== ENCOUNTER → 2022-03-12 | Outpatient (CLI) | payer OTHER ==
[2022-03-12 15:21] LABS: BASO # 0.1 10^3/uL (0.0-0.2); BASO % 0.6 % (0.0-1.0); EOS # 0.3 10^3/uL (0.0-0.5); EOS % 3.4 % (0.0-3.0); HEMATOCRIT 36.2 % (36.0-47.0); LYMPH # 2.4 10^3/uL (1.5-5.0); LYMPH % 28.6 % (24.0-44.0); MEAN CORPUSCULAR HEMOGLOBIN 30.5 pg (27.0-33.0); MEAN CORPUSCULAR HGB CONC 33.1 g/dl (32.0-36.5); MEAN CORPUSCULAR VOLUME 92.1 fl (80.0-96.0); MONO # 0.6 10^3/uL (0.0-0.8); MONO % 7.2 % (2.0-8.0); PLATELET COUNT, AUTOMATED 353 10^3/uL (150-450); RED BLOOD COUNT 3.93 10^6/uL (4.00-5.40); WHITE BLOOD COUNT 8.4 10^3/uL (4.0-10.0)
[2022-03-12 15:50] LABS: ALBUMIN 3.7 GM/DL (3.2-5.2); ALT/SGPT 19 U/L (12-78); BILIRUBIN,TOTAL 0.4 MG/DL (0.2-1.0); BLOOD UREA NITROGEN 7 MG/DL (7-18); CARBON DIOXIDE LEVEL 27 MEQ/L (21-32); CHLORIDE LEVEL 102 MEQ/L (98-107); GLOMERULAR FILTRATION RATE > 60.0 (>60); GLUCOSE, FASTING 83 MG/DL (70-100); POTASSIUM SERUM 4.1 MEQ/L (3.5-5.1); SODIUM LEVEL 137 MEQ/L (136-145); TOTAL PROTEIN 7.6 GM/DL (6.4-8.2)
[2022-03-12 16:06] LABS: ERYTHROCYTE SEDIMENTATION RATE 34 mm/hr (0-20)
== END ==
LOC: M PLALAB 12:16
PROVIDERS: ATTEND Physician Assistant
DX: L30.9 Dermatitis, unspecified (principal)

== ENCOUNTER 2022-03-28 12:49 | Outpatient (RCR) | payer OTHER | END 2022-04-01 | LOC: M OUTALCOH 12:49 | PROVIDERS: ATTEND Psychiatry & Neurology Psychiatry | DX: F10.20 Alcohol dependence, uncomplicated (principal); F12.20 Cannabis dependence, uncomplicated ==

== ENCOUNTER → 2022-04-18 | Outpatient (CLI) | payer OTHER ==
[2022-04-18 13:27] LABS: BASO % 0.5 % (0.0-1.0); EOS # 0.1 10^3/uL (0.0-0.5); EOS % 1.1 % (0.0-3.0); HEMOGLOBIN 12.3 g/dl (12.0-15.5); LYMPH % 32.7 % (24.0-44.0); MEAN CORPUSCULAR HEMOGLOBIN 29.4 pg (27.0-33.0); MEAN CORPUSCULAR HGB CONC 32.4 g/dl (32.0-36.5); MEAN CORPUSCULAR VOLUME 90.7 fl (80.0-96.0); MONO # 0.5 10^3/uL (0.0-0.8); MONO % 7.5 % (2.0-8.0); NEUTROPHILS # 3.6 10^3/uL (1.5-8.5); PLATELET COUNT, AUTOMATED 349 10^3/uL (150-450); RED BLOOD COUNT 4.19 10^6/uL (4.00-5.40); WHITE BLOOD COUNT 6.2 10^3/uL (4.0-10.0)
[2022-04-18 13:58] LABS: ALBUMIN 3.5 GM/DL (3.2-5.2); ALT/SGPT 17 U/L (12-78); BILIRUBIN,DIRECT 0.1 MG/DL (0.0-0.2); BILIRUBIN,TOTAL 0.2 MG/DL (0.2-1.0); BLOOD UREA NITROGEN 6 MG/DL (7-18); CARBON DIOXIDE LEVEL 27 MEQ/L (21-32); CHLORIDE LEVEL 107 MEQ/L (98-107); CHOLESTEROL LEVEL 198 MG/DL (<200); CHOLESTEROL RISK RATIO 1.767 (<5); CREATININE FOR GFR 0.65 MG/DL (0.55-1.30); GLOMERULAR FILTRATION RATE > 60.0 (>60); GLUCOSE, FASTING 84 MG/DL (70-100); HDL CHOLESTEROL 112 MG/DL (>40); LDL CHOLESTEROL 68 MG/DL (<100); NON-HDL-C 86 MG/DL; POTASSIUM SERUM 3.8 MEQ/L (3.5-5.1); SODIUM LEVEL 139 MEQ/L (136-145); TRIGLYCERIDES LEVEL 89 MG/DL (<150)
== END ==
LOC: M PLALAB 12:01
DX: F10.20 Alcohol dependence, uncomplicated (principal)

== ENCOUNTER → 2022-04-18 | Outpatient (CLI) | payer OTHER | LOC: M PLALAB 12:05 | DX: F10.20 Alcohol dependence, uncomplicated (principal) ==

== ENCOUNTER → 2022-05-01 | Outpatient (RCR) | payer OTHER | LOC: M OUTALCOH 04-02 10:20 | PROVIDERS: ATTEND Psychiatry & Neurology Psychiatry | DX: F10.20 Alcohol dependence, uncomplicated (principal); F12.20 Cannabis dependence, uncomplicated ==

== ENCOUNTER 2022-05-09 14:32 | Outpatient (RCR) | payer OTHER | END 2022-06-01 | LOC: M OUTALCOH 14:32 | PROVIDERS: ATTEND Psychiatry & Neurology Psychiatry | DX: F10.20 Alcohol dependence, uncomplicated (principal); F12.20 Cannabis dependence, uncomplicated ==

== ENCOUNTER → 2022-06-09 | Outpatient (CLI) | payer OTHER | LOC: M OUTALCOH 07:46 | PROVIDERS: ATTEND Psychiatry & Neurology Psychiatry | DX: F10.20 Alcohol dependence, uncomplicated (principal); F12.20 Cannabis dependence, uncomplicated ==

== ENCOUNTER → 2022-07-02 | Outpatient (RCR) | payer OTHER | LOC: M OUTALCOH 06-13 14:00 | PROVIDERS: ATTEND Psychiatry & Neurology Psychiatry | DX: F10.20 Alcohol dependence, uncomplicated (principal); F12.10 Cannabis abuse, uncomplicated ==

== ENCOUNTER 2022-07-30 14:49 | Outpatient (RCR) | payer OTHER | END 2022-08-01 | LOC: M OUTALCOH 14:49 | PROVIDERS: ATTEND Psychiatry & Neurology Psychiatry | DX: F10.20 Alcohol dependence, uncomplicated (principal); F12.10 Cannabis abuse, uncomplicated ==

== ENCOUNTER 2022-12-07 11:18 | Emergency (ER) | payer OTHER ==
[~2022-12-07] VITALS: Ht 175.3 cm; Wt 93.1 kg
[2022-12-07 13:50] LABS: BASO % 0.3 % (0.0-1.0); EOS % 0.4 % (0.0-3.0); HEMATOCRIT 42.3 % (36.0-47.0); HEMOGLOBIN 14.2 g/dl (12.0-15.5); LYMPH # 1.7 10^3/uL (1.5-5.0); LYMPH % 16.7 % (24.0-44.0); MEAN CORPUSCULAR HGB CONC 33.6 g/dl (32.0-36.5); MEAN CORPUSCULAR VOLUME 89.2 fl (80.0-96.0); MONO # 0.4 10^3/uL (0.0-0.8); MONO % 4.4 % (2.0-8.0); NEUTROPHILS # 7.8 10^3/uL (1.5-8.5); NEUTROPHILS % 77.8 % (36.0-66.0); PLATELET COUNT, AUTOMATED 257 10^3/uL (150-450); RED BLOOD COUNT 4.74 10^6/uL (4.00-5.40)
[2022-12-07 14:14] LABS: ALBUMIN 4.1 G/DL (3.2-5.2); ALKALINE PHOSPHATASE 67 U/L (46-116); ALT/SGPT 21 U/L (7.0-40); AST/SGOT 67 U/L (<34); BILIRUBIN,DIRECT 0.2 MG/DL (<0.4); BILIRUBIN,TOTAL 1.3 MG/DL (0.3-1.2); BLOOD UREA NITROGEN 11 MG/DL (9-23); CALCIUM LEVEL 10.1 MG/DL (8.5-10.1); CARBON DIOXIDE LEVEL 27 MMOL/L (20-31); CHLORIDE LEVEL 93 MMOL/L (98-107); CREATININE FOR GFR 0.64 MG/DL (0.55-1.30); GLOMERULAR FILTRATION RATE > 60.0 (>60); GLUCOSE, FASTING 110 MG/DL (60-100); LIPASE 43 U/L (12-53); POTASSIUM SERUM 4.7 MMOL/L (3.5-5.1); SODIUM LEVEL 133 MMOL/L (136-145); TOTAL PROTEIN 9.4 G/DL (5.7-8.2)
[2022-12-07 14:20] LABS: HCG, SERUM QUALITATIVE NEGATIVE (NEGATIVE)
[2022-12-07] MEDS ORDERED: ONDANSETRON 4MG 2ML VIAL IV ONE (15:05)
[2022-12-07] MEDS ORDERED: KETOROLAC 30 MG/ML 1ML VIAL IV ONE (15:05)
[2022-12-07] MEDS ORDERED: GI COCKTAIL 50ML BTL(HYOSCYAMINE/MAALOX/LIDOCAINE VISCOUS)(1:3:1) PO ONE (15:10)
[2022-12-07] MEDS ORDERED: PEPC20TA18 PO (16:26)
[2022-12-07 16:30] VITALS: BP 125/85
== END 2022-12-07 16:36 | disposition home or self-care (01) ==
LOC: M ED 11:18
DX: R11.2 Nausea with vomiting, unspecified (principal); K21.9 Gastro-esophageal reflux disease without esophagitis; R51.9 Headache, unspecified; J02.9 Acute pharyngitis, unspecified; F10.10 Alcohol abuse, uncomplicated; F41.9 Anxiety disorder, unspecified; F32.A Depression, unspecified; Z91.030 Bee allergy status; Z79.899 Other long term (current) drug therapy
CPT/HCPCS: 80048; 80076; 81000; 81015; 83690; 84703; 85025; 87086; 93005; 96374; 96375; 99284; J1885; J2405

== ENCOUNTER → 2023-01-20 | Outpatient (CLI) | payer OTHER ==
[~2023-01-20] MED LIST changes: +PEPC20TA18 PO
== END ==
LOC: M OUTALCOH 09:32
PROVIDERS: ATTEND Psychiatry & Neurology Psychiatry
DX: Z03.89 Encounter for observation for other suspected diseases and conditions ruled out (principal)

== ENCOUNTER 2023-01-28 10:49 | Outpatient (RCR) | payer OTHER | END 2023-01-30 | LOC: M OUTALCOH 10:49 | PROVIDERS: ATTEND Psychiatry & Neurology Psychiatry | DX: F10.20 Alcohol dependence, uncomplicated (principal); F12.20 Cannabis dependence, uncomplicated ==

== ENCOUNTER 2023-02-27 08:00 | Outpatient (RCR) | payer OTHER | END 2023-03-01 | LOC: M OUTALCOH 08:00 | PROVIDERS: ATTEND Psychiatry & Neurology Psychiatry | DX: F10.20 Alcohol dependence, uncomplicated (principal); F12.20 Cannabis dependence, uncomplicated ==

== ENCOUNTER 2023-03-25 08:40 | Outpatient (RCR) | payer OTHER | END 2023-04-01 | LOC: M OUTALCOH 08:40 | PROVIDERS: ATTEND Psychiatry & Neurology Psychiatry | DX: F10.20 Alcohol dependence, uncomplicated (principal); F12.20 Cannabis dependence, uncomplicated ==

== ENCOUNTER → 2023-05-01 | Outpatient (RCR) | payer OTHER ==
[~2023-05-01] MED LIST changes: -K-TA10TA2 PO; +POTA-165 PO
== END ==
LOC: M OUTALCOH 04-17 09:59
PROVIDERS: ATTEND Psychiatry & Neurology Psychiatry
DX: F10.20 Alcohol dependence, uncomplicated (principal); F12.10 Cannabis abuse, uncomplicated

== ENCOUNTER → 2023-05-22 | Outpatient (CLI) | payer OTHER | LOC: M OUTALCOH 07:35 | PROVIDERS: ATTEND Psychiatry & Neurology Psychiatry | DX: Z03.89 Encounter for observation for other suspected diseases and conditions ruled out (principal) ==

== ENCOUNTER 2023-05-29 08:40 | Outpatient (RCR) | payer OTHER | END 2023-06-01 | LOC: M OUTALCOH 08:40 | PROVIDERS: ATTEND Psychiatry & Neurology Psychiatry | DX: F10.20 Alcohol dependence, uncomplicated (principal); F12.10 Cannabis abuse, uncomplicated ==

== ENCOUNTER → 2023-07-16 | Outpatient (CLI) | payer OTHER | LOC: M OUTALCOH 08:06 | PROVIDERS: ATTEND Psychiatry & Neurology Psychiatry | DX: F10.20 Alcohol dependence, uncomplicated (principal); F12.10 Cannabis abuse, uncomplicated ==

== ENCOUNTER 2023-09-04 15:58 | Outpatient (RCR) | payer OTHER | END 2023-10-01 | LOC: M OUTALCOH 15:58 | PROVIDERS: ATTEND Psychiatry & Neurology Psychiatry | DX: F10.20 Alcohol dependence, uncomplicated (principal) ==

== ENCOUNTER → 2023-09-28 | Outpatient (CLI) | payer OTHER ==
[2023-09-28 17:49] LABS: BASO # 0.1 10^3/uL (0.0-0.2); BASO % 0.8 % (0.0-1.0); EOS # 0.3 10^3/uL (0.0-0.5); EOS % 3.3 % (0.0-3.0); HEMATOCRIT 36.2 % (36.0-47.0); HEMOGLOBIN 11.9 g/dl (12.0-15.5); LYMPH # 2.9 10^3/uL (1.5-5.0); LYMPH % 38.3 % (24.0-44.0); MEAN CORPUSCULAR HEMOGLOBIN 29.2 pg (27.0-33.0); MEAN CORPUSCULAR HGB CONC 32.9 g/dl (32.0-36.5); MEAN CORPUSCULAR VOLUME 88.7 fl (80.0-96.0); MONO # 0.6 10^3/uL (0.0-0.8); MONO % 7.3 % (2.0-8.0); NEUTROPHILS # 3.8 10^3/uL (1.5-8.5); NEUTROPHILS % 50.2 % (36.0-66.0); PLATELET COUNT, AUTOMATED 333 10^3/uL (150-450); RED BLOOD COUNT 4.08 10^6/uL (4.00-5.40); WHITE BLOOD COUNT 7.6 10^3/uL (4.0-10.0)
[2023-09-28 17:54] LABS: FERRITIN 12.9 NG/ML (7.3-270.7); IRON (FE) 22 UG/DL (50-170); PERCENT SATURATION 6.6 % (13.2-45.0); THYROID STIMULATING HORMONE 2.066 uIU/ML (0.55-4.78); TOTAL 25(OH) VITAMIN D 27.3 NG/ML (20.0-100.0); TOTAL IRON BINDING CAPACITY 332 UG/DL (250-425)
[2023-09-28 17:55] LABS: ALBUMIN 3.6 G/DL (3.2-5.2); ALKALINE PHOSPHATASE 50 U/L (46-116); ALT/SGPT 15 U/L (7.0-40); AST/SGOT 10 U/L (<34); BILIRUBIN,TOTAL 0.4 MG/DL (0.3-1.2); BLOOD UREA NITROGEN 8 MG/DL (9-23); CALCIUM LEVEL 9.2 MG/DL (8.5-10.1); CARBON DIOXIDE LEVEL 28 MMOL/L (20-31); CHLORIDE LEVEL 103 MMOL/L (98-107); CHOLESTEROL LEVEL 175 MG/DL (<200); CHOLESTEROL RISK RATIO 2.65 (<5); CREATININE FOR GFR 0.63 MG/DL (0.55-1.30); GLOMERULAR FILTRATION RATE > 60.0 (>60); GLUCOSE, FASTING 82 MG/DL (60-100); HDL CHOLESTEROL 65.8 MG/DL (>40); LDL CHOLESTEROL 87.8 MG/DL (<100); NON-HDL-C 109.2 MG/DL; POTASSIUM SERUM 3.7 MMOL/L (3.5-5.1); SODIUM LEVEL 140 MMOL/L (136-145); TOTAL PROTEIN 7.4 G/DL (5.7-8.2); TRIGLYCERIDES LEVEL 107 MG/DL (<150)
[2023-09-28 17:56] LABS: FREE T4 0.86 NG/DL (0.89-1.76); VITAMIN B12 LEVEL 732 PG/ML (211-911)
[2023-09-28 18:06] LABS: HEMOGLOBIN A1c 5.1 % (4.0-6.0)
== END ==
LOC: M PLALAB 15:41
PROVIDERS: ATTEND Physician Assistant
DX: D75.89 Other specified diseases of blood and blood-forming organs (principal); K21.9 Gastro-esophageal reflux disease without esophagitis; E66.09 Other obesity due to excess calories; Z13.220 Encounter for screening for lipoid disorders; Z13.29 Encounter for screening for other suspected endocrine disorder

== ENCOUNTER 2023-11-30 16:00 | Outpatient (RCR) | payer OTHER | END 2023-12-02 | LOC: M OUTALCOH 16:00 | PROVIDERS: ATTEND Psychiatry & Neurology Psychiatry | DX: F10.20 Alcohol dependence, uncomplicated (principal) ==

== ENCOUNTER → 2023-12-31 | Outpatient (RCR) | payer OTHER | LOC: M OUTALCOH 12-10 10:35 | PROVIDERS: ATTEND Psychiatry & Neurology Psychiatry | DX: F10.20 Alcohol dependence, uncomplicated (principal) | CPT/HCPCS: G0397 ×2 ==

== ENCOUNTER → 2024-02-02 | Outpatient (REF) | payer OTHER | LOC: M SFHCPLAZ 17:03 | PROVIDERS: ATTEND Physician Assistant | DX: L08.9 Local infection of the skin and subcutaneous tissue, unspecified (principal) ==

== ENCOUNTER → 2024-02-04 | Outpatient (CLI) | payer OTHER | LOC: M OUTALCOH 08:53 | PROVIDERS: ATTEND Psychiatry & Neurology Psychiatry | DX: F10.20 Alcohol dependence, uncomplicated (principal); F12.10 Cannabis abuse, uncomplicated ==

== ENCOUNTER → 2024-03-01 | Outpatient (RCR) | payer OTHER | LOC: M OUTALCOH 02-10 09:43 | PROVIDERS: ATTEND Psychiatry & Neurology Psychiatry | DX: F10.20 Alcohol dependence, uncomplicated (principal); F12.10 Cannabis abuse, uncomplicated | CPT/HCPCS: G0397 ×2 ==

== ENCOUNTER → 2024-08-05 | Outpatient (CLI) | payer OTHER ==
[2024-08-05 13:26] LABS: BASO % 0.5 % (0.0-1.0); EOS # 0.1 10^3/uL (0.0-0.5); EOS % 1.3 % (0.0-3.0); HEMATOCRIT 38.9 % (36.0-47.0); HEMOGLOBIN 13.1 g/dl (12.0-15.5); LYMPH # 1.7 10^3/uL (1.5-5.0); LYMPH % 28.2 % (24.0-44.0); MEAN CORPUSCULAR HEMOGLOBIN 31.9 pg (27.0-33.0); MEAN CORPUSCULAR HGB CONC 33.7 g/dl (32.0-36.5); MEAN CORPUSCULAR VOLUME 94.6 fl (80.0-96.0); MONO # 0.4 10^3/uL (0.0-0.8); MONO % 6.1 % (2.0-8.0); NEUTROPHILS # 3.9 10^3/uL (1.5-8.5); NEUTROPHILS % 63.7 % (36.0-66.0); PLATELET COUNT, AUTOMATED 290 10^3/uL (150-450); RED BLOOD COUNT 4.11 10^6/uL (4.00-5.40); WHITE BLOOD COUNT 6.1 10^3/uL (4.0-10.0)
[2024-08-05 13:56] LABS: ALBUMIN 3.7 G/DL (3.2-5.2); ALKALINE PHOSPHATASE 51 U/L (46-116); ALT/SGPT 10 U/L (7.0-40); AST/SGOT < 8 U/L (<34); BILIRUBIN,TOTAL 0.5 MG/DL (0.3-1.2); BLOOD UREA NITROGEN 7 MG/DL (9-23); CARBON DIOXIDE LEVEL 28 MMOL/L (20-31); CHLORIDE LEVEL 106 MMOL/L (98-107); CREATININE FOR GFR 0.77 MG/DL (0.55-1.30); GLOMERULAR FILTRATION RATE > 60.0 (>60); GLUCOSE, FASTING 99 MG/DL (60-100); IRON (FE) 67 UG/DL (50-170); PERCENT SATURATION 23.4 % (13.2-45.0); POTASSIUM SERUM 4.2 MMOL/L (3.5-5.1); SODIUM LEVEL 140 MMOL/L (136-145); TOTAL IRON BINDING CAPACITY 286 UG/DL (250-425); TOTAL PROTEIN 7.3 G/DL (5.7-8.2)
[2024-08-05 14:03] LABS: THYROID STIMULATING HORMONE 0.663 uIU/ML (0.55-4.78)
== END ==
LOC: M PLALAB 10:08
PROVIDERS: ATTEND Physician Assistant
DX: D50.9 Iron deficiency anemia, unspecified (principal); E66.09 Other obesity due to excess calories

== ENCOUNTER 2024-09-07 09:51 | Day surgery (SDC) | payer MEDICAID, OTHER ==
[~2024-09-07] VITALS: Ht 175.3 cm; Wt 94.1 kg
[~2024-09-07 09:51] MED LIST changes: +CLON-412 PO; +FERR325T19 PO; +HYDR50TA70 PO; +MULT-90 PO; +OMEP-173 PO; +OXYB5TAB14 PO; +WELLTAB38 PO; +WELLTAB40 PO; +[UNRECOGNIZED DRUG - CODE] PO
[2024-09-07] MEDS ORDERED: fentaNYL 100 MCG/2 ML INJECTION As Ordered ONE (10:22)
[2024-09-07] MEDS ORDERED: MIDAZOLAM INJ 2MG/2ML VIAL As Ordered ONE (10:23)
[2024-09-07] MEDS: NS 250 ML IV SCH (10:43)
[2024-09-07] MEDS: ceFAZolin SOD 2 GM in IV 1 EA IV ONE (11:50)
[2024-09-07] MEDS: LIDOCAINE 1% MDV 20ML VIAL As Ordered ONE (12:03)
[2024-09-07] MEDS ORDERED: propofoL 200 MG/20 ML VIAL As Ordered ONE (12:08)
[2024-09-07] MEDS ORDERED: ONDANSETRON 4MG 2ML VIAL As Ordered ONE (12:51)
[2024-09-07] MEDS: NS 1,000 ML IV SCH (13:20)
[2024-09-07] MEDS ORDERED: HYDROMORPHONE HCL 0.5 MG/ 0.5 ML SYRINGE IV PRN (13:20)
[2024-09-07] MEDS ORDERED: ONDANSETRON 4MG 2ML VIAL IV PRN (13:20)
[2024-09-07] MEDS: oxyCODONE 5MG TAB PO PRN (13:38)
[2024-09-07] MEDS ORDERED: MEPERIDINE 25 MG/ML 1ML VIAL As Ordered ONE (13:42)
[2024-09-07] MEDS: MEPERIDINE 25 MG/ML 1ML VIAL IV PRN (13:47)
[2024-09-07] MEDS: fentaNYL 100 MCG/2 ML INJECTION IV PRN (13:52)
[2024-09-07 14:25] VITALS: BP 121/78; TEMP 98.8; O2SAT 98
== END 2024-09-07 15:00 | disposition home or self-care (01) ==
LOC: M SDC 09:51
PROVIDERS: ATTEND Podiatrist Foot & Ankle Surgery
DX: M21.611 Bunion of right foot (principal); D50.9 Iron deficiency anemia, unspecified; J44.9 Chronic obstructive pulmonary disease, unspecified; N32.81 Overactive bladder; K21.9 Gastro-esophageal reflux disease without esophagitis; Z79.899 Other long term (current) drug therapy; Z91.030 Bee allergy status; L40.9 Psoriasis, unspecified
CPT/HCPCS: 28298; 76000; C1713; J0665; J0690; J1100; J2175; J2250; J2405; J3010

== ENCOUNTER → 2025-01-23 | Outpatient (CLI) | payer OTHER ==
[~2025-01-23] MED LIST changes: -POTA540T PO; +POTA540T5 PO
== END ==
LOC: M WHC 13:52
PROVIDERS: ATTEND Physician Assistant Medical
DX: Z12.31 Encounter for screening mammogram for malignant neoplasm of breast (principal); R92.323 Mammographic fibroglandular density, bilateral breasts

== ENCOUNTER → 2025-03-17 | Outpatient (CLI) | payer OTHER ==
[2025-03-17 16:37] LABS: HEMATOCRIT 39.6 % (36.0-47.0); HEMOGLOBIN 13.2 g/dl (12.0-15.5); MEAN CORPUSCULAR HGB CONC 33.3 g/dl (32.0-36.5); PLATELET COUNT, AUTOMATED 300 10^3/uL (150-450); RED BLOOD COUNT 4.26 10^6/uL (4.00-5.40); WHITE BLOOD COUNT 7.6 10^3/uL (4.0-10.0)
[2025-03-17 16:44] LABS: APPEARANCE, URINE CLEAR (CLEAR); BACTERIA, URINE AUTO NEGATIVE (NEGATIVE); BILIRUBIN, URINE AUTO NEGATIVE (NEGATIVE); BLOOD, URINE BLOOD 3+ (NEGATIVE); COLOR, URINE YELLOW (YELLOW); GLUCOSE, URINE (UA) AUTO NEGATIVE (NEGATIVE); KETONE, URINE AUTO NEGATIVE (NEGATIVE); LEUKOCYTE ESTERASE, URINE AUTO NEGATIVE (NEGATIVE); MUCUS, URINE SMALL (NEGATIVE); NITRITE, URINE AUTO NEGATIVE (NEGATIVE); PROTEIN, URINE AUTO NEGATIVE (NEGATIVE); RBC, URINE AUTO 1 /HPF (0-3); SPECIFIC GRAVITY URINE AUTO 1.008 (1.002-1.035); SQUAMOUS EPITHELIAL CELL UR AU 2 /HPF (0-6); UROBILINOGEN, URINE AUTO 0.2 mg/dL (0.0-2.0); WBC, URINE AUTO 1 /HPF (0-3)
[2025-03-17 17:01] LABS: PERCENT SATURATION 34.5 % (13.2-45.0)
[2025-03-17 17:03] LABS: FERRITIN 16.5 NG/ML (7.3-270.7)
[2025-03-17 17:04] LABS: FOLATE 17.7 NG/ML (>5.4)
== END ==
LOC: M PLALAB 10:18
PROVIDERS: ATTEND Nurse Practitioner Family
DX: D50.9 Iron deficiency anemia, unspecified (principal); F10.99 Alcohol use, unspecified with unspecified alcohol-induced disorder; N32.81 Overactive bladder